=== PATIENT | female | born 1975 | race Caucasian/White ===

== ENCOUNTER → 2016-11-20 | Outpatient (CLI) | payer MEDICARE ==
[~2016-11-20] MED LIST: ADVIL,MOTRIN,R200 MG PO; ANAPROX DS550 MG PO; CELEXA40 MG PO; CLARITIN10 MG PO; CLINDAMYCIN150 MG PO; LEVOTHYROXINE0.1 M1 PO; MIDRIN (DURADR1 CAP PO; QUETIAPINE FUM400 M1 PO; SEROQUEL200 MG PO; SERTRALINE HYD100 MG PO; SYNTHROID,LEV200 MCG PO; ULTRAM50 MG PO; WELLBUTRIN SR150 MG PO; ZITHROMAX Z PA250 MG PO
== END ==
LOC: MAMMO 11:00
DX: Z12.31 Encounter for screening mammogram for malignant neoplasm of breast (principal); F41.9 Anxiety disorder, unspecified; R07.9 Chest pain, unspecified

== ENCOUNTER 2016-12-17 22:31 | Emergency (ER) | payer MEDICARE ==
[2016-12-17] MEDS ORDERED: ALDACTONE25 MG PO (22:41)
[2016-12-17 22:53] LABS: BASO # 0.1 10*3/uL (0.0-0.1); BASO % 1.1 % (0.0-1.0); EOS # 0.2 10*3/uL (0.0-0.4); HEMATOCRIT 36.7 % (37.0-47.0); HEMOGLOBIN 12.3 g/dl (12.0-16.0); LYMPH # 3.2 10*3/uL (1.3-4.4); LYMPH % 43.6 % (27.0-41.0); MEAN CELL VOLUME 98.9 fl (81.0-99.0); MEAN CORPUSCULAR HGB 33.2 pg (27.0-31.0); MEAN CORPUSCULAR HGB CONC 33.5 g/dl (33.0-37.0); MEAN PLATELET VOLUME 10.4 fl (9.6-12.3); MONO # 0.6 10*3/uL (0.1-1.0); MONO % 7.4 % (3.0-9.0); NEUT # 3.4 10*3/uL (2.3-7.9); NEUT % 45.5 % (47.0-73.0); PLATELET COUNT AUTOMATED 270 10*3/uL (130-400); RED BLOOD COUNT 3.71 10*6/uL (4.10-5.10); RED CELL DISTRI WIDTH 13.1 % (0-14.5); WHITE BLOOD COUNT 7.4 10*3/uL (4.8-10.8)
[2016-12-17 23:45] LABS: PROTHROMBIN TIME 10.9 SECONDS (9.0-12.4)
[2016-12-17 23:50] LABS: ALBUMIN 3.4 gm/dl (3.1-4.5); ALKALINE PHOSPHATASE 54 U/L (45-117); BILIRUBIN, TOTAL 0.2 mg/dl (0.2-1.0); BUN 15 mg/dl (7-24); CARBON DIOXIDE 24 mmol/L (21-32); CHLORIDE 104 mmol/L (98-107); EST GLOM FILT AFRICAN AMERICAN > 60 ml/min; GLUCOSE 140 mg/dL (65-99); MAGNESIUM 1.7 mg/dL (1.5-2.1); POTASSIUM 4.2 mmol/L (3.5-5.1); SGOT/AST 20 IU/L (3-35); SGPT/ALT 44 U/L (12-78); SODIUM 140 mmol/L (136-145); TOTAL PROTEIN 7.5 gm/dL (6.4-8.2)
[2016-12-17 23:51] LABS: TROPONIN I < 0.015 ng/ml (<0.045)
[2016-12-18 00:11] VITALS: BP 116/68
[2016-12-18] MEDS ORDERED: ZANTAC 150150 MG PO (00:22)
== END 2016-12-18 00:22 | disposition home or self-care (01) ==
LOC: ED 22:31
PROVIDERS: Emergency Medicine Emergency Medical Services
DX: R07.89 Other chest pain (principal); Z88.0 Allergy status to penicillin; Z88.2 Allergy status to sulfonamides; Z79.899 Other long term (current) drug therapy

== ENCOUNTER 2017-01-09 11:16 | Emergency (ER) | payer MEDICARE ==
[~2017-01-09] VITALS: Ht 162.5 cm; Wt 145.1 kg
[~2017-01-09 11:16] MED LIST changes: +ALDACTONE25 MG PO; +ZANTAC 150150 MG PO
[2017-01-09 11:20] VITALS: BP 169/74
[2017-01-09] MEDS ORDERED: NAPROSYN500 MG PO (11:23)
== END 2017-01-09 12:43 | disposition home or self-care (01) ==
LOC: ED 11:16
DX: S80.01XA Contusion of right knee, initial encounter (principal); R03.0 Elevated blood-pressure reading, without diagnosis of hypertension; Z88.0 Allergy status to penicillin; Z88.1 Allergy status to other antibiotic agents; Z88.2 Allergy status to sulfonamides; Z79.899 Other long term (current) drug therapy; W01.0XXA Fall on same level from slipping, tripping and stumbling without subsequent striking against object, initial encounter; Y93.89 Activity, other specified; Y92.89 Other specified places as the place of occurrence of the external cause; Y99.8 Other external cause status

== ENCOUNTER → 2017-02-05 | Outpatient (CLI) | payer MEDICARE ==
[~2017-02-05] MED LIST changes: +NAPROSYN500 MG PO
[2017-02-05 10:49] LABS: HEMOGLOBIN A1c 6.5 % (4.8-5.6)
[2017-02-05 10:59] LABS: BUN 11 mg/dl (7-24); CARBON DIOXIDE 31 mmol/L (21-32); CHLORIDE 102 mmol/L (98-107); EST GLOM FILT AFRICAN AMERICAN > 60 ml/min; FREE T4 0.71 ng/dl (0.76-1.46); GLUCOSE 100 mg/dL (65-99); POTASSIUM 3.8 mmol/L (3.5-5.1); SODIUM 138 mmol/L (136-145)
== END | disposition home or self-care (01) ==
LOC: LAB 09:44
PROVIDERS: Internal Medicine
DX: I10 Essential (primary) hypertension (principal); E03.9 Hypothyroidism, unspecified; E55.9 Vitamin D deficiency, unspecified; E88.81 Metabolic syndrome and other insulin resistance; E66.01 Morbid (severe) obesity due to excess calories; Z79.899 Other long term (current) drug therapy

== ENCOUNTER 2017-06-30 23:30 | Emergency (ER) | payer MEDICARE ==
[~2017-06-30] VITALS: Ht 160 cm; Wt 147.0 kg
--- NOTE | ~2017-06-30 | EKG ---
[place], [place] ELECTROCARDIOGRAM REPORT NAME: DESIRE ABRAHAM UNIT #: [id number] ROOM: DOCTOR: YANE HANSEN MD BIRTHDATE: [birth year] DOS: 07/01/2017 TIME: 0111 hours. Normal sinus rhythm at 78 beats per minute. The tracing is normal. No significant change from an ECG of the previous day. YANE HANSEN MD CM:EKGRPT:ELECTROCARDIOGRAM REPORT 1146 1302 YANE HANSEN MD
--- NOTE | ~2017-06-30 | EKG ---
[place], [place] ELECTROCARDIOGRAM REPORT NAME: DESIRE ABRAHAM UNIT #: [id number] ROOM: DOCTOR: YANE HANSEN MD BIRTHDATE: [birth year] DOS: 06/30/2017 TIME: 2341 hours. Normal sinus rhythm at 76 beats per minute. The tracing is normal. No previous tracing is available for comparison. YAEN HANSEN MD CM:EKGRPT:ELECTROCARDIOGRAM REPORT 1146 1301 YANE HANSEN MD
[2017-07-01 00:17] LABS: BASO # 0.1 10*3/uL (0.0-0.1); BASO % 0.9 % (0.0-1.0); EOS # 0.1 10*3/uL (0.0-0.4); HEMATOCRIT 37.2 % (37.0-47.0); HEMOGLOBIN 12.4 g/dl (12.0-16.0); LYMPH # 1.6 10*3/uL (1.3-4.4); LYMPH % 16.6 % (27.0-41.0); MEAN CELL VOLUME 98.4 fl (81.0-99.0); MEAN CORPUSCULAR HGB 32.8 pg (27.0-31.0); MEAN CORPUSCULAR HGB CONC 33.3 g/dl (33.0-37.0); MEAN PLATELET VOLUME 9.6 fl (9.6-12.3); MONO # 0.5 10*3/uL (0.1-1.0); MONO % 4.8 % (3.0-9.0); NEUT # 7.1 10*3/uL (2.3-7.9); NEUT % 75.5 % (47.0-73.0); PLATELET COUNT AUTOMATED 286 10*3/uL (130-400); RED BLOOD COUNT 3.78 10*6/uL (4.10-5.10); RED CELL DISTRI WIDTH 13.7 % (0-14.5); WHITE BLOOD COUNT 9.3 10*3/uL (4.8-10.8)
[2017-07-01 00:28] LABS: ACT PARTIAL THROMBO TIME 23.1 SECONDS (20.8-31.5)
[2017-07-01 00:37] LABS: ALBUMIN 3.9 gm/dl (3.1-4.5); ALKALINE PHOSPHATASE 62 U/L (45-117); BUN 12 mg/dl (7-24); CHLORIDE 99 mmol/L (98-107); CREATININE 0.72 mg/dL (0.55-1.02); MAGNESIUM 1.7 mg/dL (1.5-2.1); POTASSIUM 3.7 mmol/L (3.5-5.1); SGOT/AST 20 IU/L (3-35); SGPT/ALT 35 U/L (12-78); SODIUM 136 mmol/L (136-145); TOTAL PROTEIN 8.5 gm/dL (6.4-8.2)
[2017-07-01 00:41] LABS: TROPONIN I < 0.015 ng/ml (<0.045)
[2017-07-01 00:48] VITALS: BP 124/66
[2017-07-01 01:19] LABS: BILIRUBIN NEGATIVE (NEGATIVE); BLOOD NEGATIVE (NEGATIVE); CLARITY SL CLOUDY (CLEAR); COLOR YELLOW (YELLOW); GLUCOSE NEGATIVE (NEGATIVE); KETONE TRACE (NEGATIVE); LEUKO ESTERASE 1+ (NEGATIVE); NITRITE POSITIVE (NEGATIVE); PH 5.5 (5.0-9.0); SPECIFIC GRAVITY >= 1.030 (1.005-1.030); UROBILINOGEN 0.2 E.U./dl (0.2-1.0)
[2017-07-01 01:25] LABS: EPITHELIAL CELLS 25-30
[2017-07-01 01:26] LABS: BACTERIA 2+
[2017-07-01 01:28] LABS: WBC 21-30 wbc/hpf (0-5)
[2017-07-01] MEDS ORDERED: DIFLUCAN150 MG PO (01:47)
[2017-07-01] MEDS ORDERED: ZOFRAN ODT4 MG SL (01:47)
[2017-07-01] MEDS ORDERED: REGLAN5 MG PO (01:47)
[2017-07-01] MEDS ORDERED: MACROBID100 M1 PO (01:47)
== END 2017-07-01 02:06 | disposition home or self-care (01) ==
LOC: ED 23:30
PROVIDERS: Emergency Medicine Emergency Medical Services
DX: N39.0 Urinary tract infection, site not specified (principal); I10 Essential (primary) hypertension; K21.9 Gastro-esophageal reflux disease without esophagitis; E11.43 Type 2 diabetes mellitus with diabetic autonomic (poly)neuropathy; K31.84 Gastroparesis; R10.13 Epigastric pain; Z98.890 Other specified postprocedural states; Z90.710 Acquired absence of both cervix and uterus; Z79.899 Other long term (current) drug therapy; Z88.2 Allergy status to sulfonamides; Z88.1 Allergy status to other antibiotic agents; Z88.0 Allergy status to penicillin

== ENCOUNTER → 2017-07-10 | Outpatient (CLI) | payer MEDICARE ==
[~2017-07-10] MED LIST changes: +DIFLUCAN150 MG PO; +MACROBID100 M1 PO; +REGLAN5 MG PO; +ZOFRAN ODT4 MG SL
[2017-07-10 10:36] LABS: BUN 17 mg/dl (7-24); CHLORIDE 99 mmol/L (98-107); CREATININE 1.03 mg/dL (0.55-1.02); POTASSIUM 4.1 mmol/L (3.5-5.1); SODIUM 137 mmol/L (136-145)
[2017-07-10 12:50] LABS: VITAMIN D, 25-HYDROXY 27.5 ng/mL (30-100)
== END ==
LOC: US 07:30 → LAB 08:56 → US 08:56
PROVIDERS: Internal Medicine
DX: K76.0 Fatty (change of) liver, not elsewhere classified (principal); K80.20 Calculus of gallbladder without cholecystitis without obstruction; E55.9 Vitamin D deficiency, unspecified; E03.9 Hypothyroidism, unspecified; R73.02 Impaired glucose tolerance (oral); L68.0 Hirsutism

== ENCOUNTER → 2017-12-02 | Outpatient (CLI) | payer MEDICARE | END | disposition home or self-care (01) | LOC: ORTHO 01:26 | DX: M17.11 Unilateral primary osteoarthritis, right knee (principal); Z91.81 History of falling ==

== ENCOUNTER 2018-03-13 18:32 | Inpatient (IN) | payer MEDICARE ==
[~2018-03-13] VITALS: Ht 162.5 cm; Wt 143.9 kg
[2018-03-13 18:39] VITALS: BP 107/65
[2018-03-13] MEDS ORDERED: PANTOPRAZOLE SO40 MG PO (18:48)
[2018-03-13] MEDS ORDERED: VITAMIN D5000 UNIT PO (18:48)
[2018-03-13] MEDS ORDERED: METFORMIN750 MG PO (18:49)
[2018-03-13 19:23] LABS: BASO # 0.1 10*3/uL (0.0-0.1); BASO % 0.5 % (0.0-1.0); EOS # 0.1 10*3/uL (0.0-0.4); EOS % 0.6 % (1.0-4.0); HEMOGLOBIN 11.1 g/dl (12.0-16.0); LYMPH % 9.1 % (27.0-41.0); MEAN CELL VOLUME 100.3 fl (81.0-99.0); MEAN CORPUSCULAR HGB 32.7 pg (27.0-31.0); MEAN CORPUSCULAR HGB CONC 32.6 g/dl (33.0-37.0); MEAN PLATELET VOLUME 9.6 fl (9.6-12.3); MONO # 1.1 10*3/uL (0.1-1.0); MONO % 9.9 % (3.0-9.0); NEUT # 8.9 10*3/uL (2.3-7.9); NEUT % 79.3 % (47.0-73.0); PLATELET COUNT AUTOMATED 258 10*3/uL (130-400); RED BLOOD COUNT 3.39 10*6/uL (4.10-5.10); RED CELL DISTRI WIDTH 14.2 % (0-14.5); WHITE BLOOD COUNT 11.3 10*3/uL (4.8-10.8)
[2018-03-13 19:38] LABS: BILIRUBIN NEGATIVE (NEGATIVE); BLOOD 3+ (NEGATIVE); CLARITY SL CLOUDY (CLEAR); COLOR YELLOW (YELLOW); GLUCOSE NEGATIVE (NEGATIVE); KETONE NEGATIVE (NEGATIVE); LEUKO ESTERASE 3+ (NEGATIVE); NITRITE POSITIVE (NEGATIVE); PH 6.5 (5.0-9.0); SPECIFIC GRAVITY 1.015 (1.005-1.030)
[2018-03-13 19:39] LABS: ALBUMIN 3.4 gm/dl (3.1-4.5); ALKALINE PHOSPHATASE 56 U/L (45-117); BUN 13 mg/dl (7-24); CHLORIDE 99 mmol/L (98-107); CREATININE 0.97 mg/dL (0.55-1.02); LIPASE 79 U/L (73-393); POTASSIUM 4.1 mmol/L (3.5-5.1); SGOT/AST 22 IU/L (3-35); SGPT/ALT 37 U/L (12-78); SODIUM 135 mmol/L (136-145); TOTAL PROTEIN 7.9 gm/dL (6.4-8.2)
[2018-03-13 19:45] LABS: BACTERIA 2+; EPITHELIAL CELLS 50-60; RBC 21-30 rbc/hpf (0-2); WBC TNTC wbc/hpf (0-5)
[2018-03-13 20:00] VITALS: BP 110/72
[2018-03-14 02:18] LABS: BASO # 0.1 10*3/uL (0.0-0.1); BASO % 0.4 % (0.0-1.0); EOS % 0.3 % (1.0-4.0); HEMOGLOBIN 10.2 g/dl (12.0-16.0); LYMPH # 1.1 10*3/uL (1.3-4.4); LYMPH % 9.9 % (27.0-41.0); MEAN CELL VOLUME 100.6 fl (81.0-99.0); MEAN CORPUSCULAR HGB 32.1 pg (27.0-31.0); MEAN CORPUSCULAR HGB CONC 31.9 g/dl (33.0-37.0); MEAN PLATELET VOLUME 9.8 fl (9.6-12.3); MONO # 1.3 10*3/uL (0.1-1.0); MONO % 11.6 % (3.0-9.0); NEUT # 8.7 10*3/uL (2.3-7.9); NEUT % 77.1 % (47.0-73.0); PLATELET COUNT AUTOMATED 246 10*3/uL (130-400); RED BLOOD COUNT 3.18 10*6/uL (4.10-5.10); RED CELL DISTRI WIDTH 14.2 % (0-14.5); WHITE BLOOD COUNT 11.2 10*3/uL (4.8-10.8)
[2018-03-14 02:27] LABS: ACT PARTIAL THROMBO TIME 27.5 SECONDS (20.8-31.5); INTERNATIONAL NORM RATIO 1.1 (2.0-3.5)
[2018-03-14 02:32] LABS: ALBUMIN 3.2 gm/dl (3.1-4.5); ALKALINE PHOSPHATASE 58 U/L (45-117); BUN 11 mg/dl (7-24); CHLORIDE 97 mmol/L (98-107); CHOLESTEROL 112 mg/dL (<200); CREATININE 1.08 mg/dL (0.55-1.02); HDL CHOLESTEROL 39 mg/dl (40-60); LDL CHOLESTEROL 54 mg/dL (9-159); PHOSPHOROUS 3.6 mg/dL (2.5-4.9); POTASSIUM 4.1 mmol/L (3.5-5.1); SGOT/AST 19 IU/L (3-35); SGPT/ALT 36 U/L (12-78); SODIUM 136 mmol/L (136-145); TOTAL PROTEIN 7.4 gm/dL (6.4-8.2); TRIGLYCERIDES 97 mg/dl (<150); VLDL CHOLESTEROL 19 mg/dL (6-40)
[2018-03-14 02:34] LABS: FREE T4 1.21 ng/dl (0.76-1.46)
[2018-03-14 02:38] LABS: THYROID STIM HORMONE (HS) 0.129 uIU/ml (0.358-4.75)
[2018-03-14 03:45] VITALS: BP 126/66
[2018-03-14] MEDS ORDERED: LEVOTHYROXINE175 MCG PO (04:00)
[2018-03-14] MEDS ORDERED: METOCLOPRAMIDE5 MG PO (04:02)
[2018-03-14] MEDS ORDERED: NAPROSYN500 MG PO (04:03)
[2018-03-14] MEDS ORDERED: SEROQUEL25 MG PO (04:05)
[2018-03-14] MEDS ORDERED: ALDACTONE100 MG PO (04:07)
[2018-03-14 07:05] LABS: VITAMIN D, 25-HYDROXY 32.1 ng/mL (30-100)
[2018-03-14 08:00] VITALS: BP 129/69
[2018-03-14 12:00] VITALS: BP 134/67
[2018-03-14 16:00] VITALS: BP 94/58
[2018-03-14 20:00] VITALS: BP 117/75
[2018-03-15] VITALS: BP 102/52
[2018-03-15 06:05] LABS: BASO # 0.1 10*3/uL (0.0-0.1); BASO % 0.6 % (0.0-1.0); EOS # 0.1 10*3/uL (0.0-0.4); EOS % 1.7 % (1.0-4.0); HEMOGLOBIN 9.7 g/dl (12.0-16.0); LYMPH # 1.2 10*3/uL (1.3-4.4); LYMPH % 15.5 % (27.0-41.0); MEAN CORPUSCULAR HGB 31.9 pg (27.0-31.0); MEAN CORPUSCULAR HGB CONC 31.3 g/dl (33.0-37.0); MEAN PLATELET VOLUME 10.1 fl (9.6-12.3); MONO # 1.1 10*3/uL (0.1-1.0); MONO % 14.2 % (3.0-9.0); NEUT # 5.2 10*3/uL (2.3-7.9); PLATELET COUNT AUTOMATED 208 10*3/uL (130-400); RED BLOOD COUNT 3.04 10*6/uL (4.10-5.10); RED CELL DISTRI WIDTH 14.2 % (0-14.5); WHITE BLOOD COUNT 7.7 10*3/uL (4.8-10.8)
[2018-03-15 06:07] LABS: ALBUMIN 2.8 gm/dl (3.1-4.5); ALKALINE PHOSPHATASE 53 U/L (45-117); BUN 9 mg/dl (7-24); CHLORIDE 104 mmol/L (98-107); CREATININE 0.86 mg/dL (0.55-1.02); POTASSIUM 4.1 mmol/L (3.5-5.1); SGOT/AST 13 IU/L (3-35); SGPT/ALT 27 U/L (12-78); SODIUM 138 mmol/L (136-145)
[2018-03-15 06:10] LABS: VANCOMYCIN TROUGH 24.1 ug/mL (10-20)
[2018-03-15 08:00] VITALS: BP 105/45
[2018-03-15 12:00] VITALS: BP 140/70
[2018-03-15 16:00] VITALS: BP 129/76
[2018-03-15 20:00] VITALS: BP 131/76
[2018-03-16] VITALS: BP 136/86
[2018-03-16 06:45] LABS: BASO % 0.7 % (0.0-1.0); EOS # 0.2 10*3/uL (0.0-0.4); EOS % 3.8 % (1.0-4.0); HEMATOCRIT 29.9 % (37.0-47.0); HEMOGLOBIN 9.5 g/dl (12.0-16.0); LYMPH # 1.6 10*3/uL (1.3-4.4); LYMPH % 25.7 % (27.0-41.0); MEAN CELL VOLUME 100.7 fl (81.0-99.0); MEAN CORPUSCULAR HGB CONC 31.8 g/dl (33.0-37.0); MEAN PLATELET VOLUME 9.8 fl (9.6-12.3); MONO # 0.8 10*3/uL (0.1-1.0); MONO % 13.9 % (3.0-9.0); NEUT # 3.3 10*3/uL (2.3-7.9); NEUT % 54.2 % (47.0-73.0); PLATELET COUNT AUTOMATED 223 10*3/uL (130-400); RED BLOOD COUNT 2.97 10*6/uL (4.10-5.10)
[2018-03-16 06:55] LABS: BUN 10 mg/dl (7-24); CHLORIDE 105 mmol/L (98-107); CREATININE 0.83 mg/dL (0.55-1.02); POTASSIUM 4.2 mmol/L (3.5-5.1); SODIUM 142 mmol/L (136-145)
[2018-03-16 08:00] VITALS: BP 139/81
[2018-03-16] MEDS ORDERED: DOXYCYCLINE100 M3 PO (10:06)
== END 2018-03-16 11:35 | disposition home or self-care (01) | DRG 872 ==
LOC: ED 18:32 → 5E 03-14 01:23 → EDHOLD 03-14 01:23 → 5E 03-14 01:42
PROVIDERS: Family Medicine; Internal Medicine; Nurse Practitioner Family; Student in an Organized Health Care Education/Training Program
DX: A41.9 Sepsis, unspecified organism (principal); E44.0 Moderate protein-calorie malnutrition; K31.84 Gastroparesis; E66.01 Morbid (severe) obesity due to excess calories; E11.65 Type 2 diabetes mellitus with hyperglycemia; E83.42 Hypomagnesemia; E11.43 Type 2 diabetes mellitus with diabetic autonomic (poly)neuropathy; N12 Tubulo-interstitial nephritis, not specified as acute or chronic; Z68.43 Body mass index [BMI] 50.0-59.9, adult; E03.9 Hypothyroidism, unspecified; F32.9 Major depressive disorder, single episode, unspecified; F41.9 Anxiety disorder, unspecified; D53.9 Nutritional anemia, unspecified; E53.8 Deficiency of other specified B group vitamins; Z90.49 Acquired absence of other specified parts of digestive tract; Z82.49 Family history of ischemic heart disease and other diseases of the circulatory system; Z90.710 Acquired absence of both cervix and uterus; Z83.3 Family history of diabetes mellitus; Z88.2 Allergy status to sulfonamides; Z88.0 Allergy status to penicillin; Z88.8 Allergy status to other drugs, medicaments and biological substances; Z80.3 Family history of malignant neoplasm of breast; Z84.89 Family history of other specified conditions; Z79.899 Other long term (current) drug therapy

== ENCOUNTER 2018-06-05 14:03 | Emergency (ER) | payer MEDICARE ==
[~2018-06-05] VITALS: Ht 172.7 cm; Wt 141.5 kg
[~2018-06-05 14:03] MED LIST changes: +ALDACTONE100 MG PO; +DOXYCYCLINE100 M3 PO; +LEVOTHYROXINE175 MCG PO; +METFORMIN750 MG PO; +METOCLOPRAMIDE5 MG PO; +PANTOPRAZOLE SO40 MG PO; +SEROQUEL25 MG PO; +VITAMIN D5000 UNIT PO
[2018-06-05 14:04] VITALS: BP 135/76
[2018-06-05] MEDS ORDERED: Fioricet 325 MG1 TAB PO (16:38)
== END 2018-06-05 17:09 | disposition home or self-care (01) ==
LOC: ED 14:03
DX: G43.909 Migraine, unspecified, not intractable, without status migrainosus (principal); Z90.710 Acquired absence of both cervix and uterus; Z90.49 Acquired absence of other specified parts of digestive tract; Z98.890 Other specified postprocedural states; Z79.899 Other long term (current) drug therapy; Z88.1 Allergy status to other antibiotic agents; Z88.2 Allergy status to sulfonamides; Z88.0 Allergy status to penicillin

== ENCOUNTER → 2018-09-08 | Outpatient (CLI) | payer MEDICARE ==
[~2018-09-08] MED LIST changes: +Fioricet 325 MG1 TAB PO
== END | disposition home or self-care (01) ==
LOC: ORTHO 00:54
DX: M17.11 Unilateral primary osteoarthritis, right knee (principal); M21.161 Varus deformity, not elsewhere classified, right knee

== ENCOUNTER → 2018-10-14 | Outpatient (CLI) | payer MEDICARE ==
[2018-10-14 13:39] LABS: BUN 17 mg/dl (7-24); CHLORIDE 100 mmol/L (98-107); CHOLESTEROL 215 mg/dL (<200); CREATININE 1.09 mg/dL (0.55-1.02); FREE T4 0.23 ng/dl (0.76-1.46); HDL CHOLESTEROL 47 mg/dl (40-60); LDL CHOLESTEROL 133 mg/dL (9-159); POTASSIUM 4.1 mmol/L (3.5-5.1); SODIUM 136 mmol/L (136-145); TRIGLYCERIDES 173 mg/dl (<150); VLDL CHOLESTEROL 35 mg/dL (6-40)
[2018-10-14 14:39] LABS: VITAMIN D, 25-HYDROXY 17.4 ng/mL (30-100)
[2018-10-15 06:11] LABS: DHEA SULFATE 41.3 ug/dL (57.3-279.2); PROGESTERONE 004317 <0.1 ng/mL (.)
== END | disposition home or self-care (01) ==
LOC: LAB 12:34
PROVIDERS: Internal Medicine
DX: L68.0 Hirsutism (principal); E55.9 Vitamin D deficiency, unspecified; E03.9 Hypothyroidism, unspecified; R73.02 Impaired glucose tolerance (oral)

== ENCOUNTER → 2018-12-29 | Outpatient (CLI) | payer OTHER ==
[~2018-12-29] MED LIST changes: +AIMOVIG AU70 MG/1 ML SQ; +CEFDINIR300 MG PO; +FEROSUL325 MG PO; +IBU600 M1 PO; +LEVOTHYROXINE200 MC2 PO; +METFORMIN HYDR750 MG PO; +METOPROLOL TART50 M1 PO; +PREDNISONE10 MG PO; +QUETIAPINE FUMA25 MG PO; +SEROQUEL300 MG PO; +SPIRONOLACTONE100 MG PO; +VITAMIN D5000 UNI1 PO; +ZOLOFT100 MG PO; +[UNRECOGNIZED DRUG - OTHER] PO
[2018-12-29 16:14] LABS: HEMOGLOBIN 10.2 g/dl (12.0-16.0); MEAN CELL VOLUME 108.1 fl (81.0-99.0); MEAN CORPUSCULAR HGB 34.5 pg (27.0-31.0); MEAN CORPUSCULAR HGB CONC 31.9 g/dl (33.0-37.0); MEAN PLATELET VOLUME 9.5 fl (9.6-12.3); PLATELET COUNT AUTOMATED 265 10*3/uL (130-400); RED BLOOD COUNT 2.96 10*6/uL (4.10-5.10); RED CELL DISTRI WIDTH 14.4 % (0-14.5); WHITE BLOOD COUNT 6.5 10*3/uL (4.8-10.8)
[2018-12-29 16:47] LABS: ALBUMIN 3.5 gm/dl (3.1-4.5); ALKALINE PHOSPHATASE 53 U/L (45-117); BASOPHILS 2 % (0-1); BUN 23 mg/dl (7-24); CHLORIDE 101 mmol/L (98-107); CPK 185 U/L (26-192); CREATININE 1.18 mg/dL (0.55-1.02); PLATELET SUFFICIENCY NORMAL (NORMAL); POTASSIUM 4.5 mmol/L (3.5-5.1); SGOT/AST 28 IU/L (3-35); SGPT/ALT 48 U/L (12-78); SODIUM 135 mmol/L (136-145); TARGET CELLS FEW; TOTAL CELLS COUNTED 100 #CELLS; TOTAL PROTEIN 8.1 gm/dL (6.4-8.2)
== END | disposition home or self-care (01) ==
LOC: LAB 15:47
PROVIDERS: Nurse Practitioner Adult Health
DX: R10.13 Epigastric pain (principal); R00.2 Palpitations

== ENCOUNTER 2019-03-09 14:52 | Inpatient (IN) | payer MEDICARE ==
[~2019-03-09] VITALS: Ht 162.5 cm; Wt 156.2 kg
--- NOTE | ~2019-03-09 | EKG ---
[place], [place] ELECTROCARDIOGRAM REPORT NAME: DESIRE ABRAHAM UNIT #: [id number] ROOM: 516 DOCTOR: TEVIN DRAFT REPORT BIRTHDATE: [birth year] [facility] Test Date: 2019-03-09 Test Time: 15:24:34 Pat Name: DESIRE ABRAHAM Department: Room: 516 Gender: F [employer]ing [employer] Tender: : 1975 Requested By: LAURA CHRISTOPHER DNP Order Number: [id number] Reading MD: Justin Payton MD Measurements Intervals [place] Rate: 109 P: 51 SD: 176 QRS: 41 QRSD: 77 T: 8 QT: 351 QTc: 473 Interpretive Statements Sinus tachycardia Borderline T wave abnormalities Baseline wander in lead(s) V1 Electronically Signed On 03-11-2019 9:10:42 PDT by Justin Payton MD CM:EKGRPT:ELECTROCARDIOGRAM REPORT 1524 [id number] LAURA ABARCA DRAFT REPORT LAURA CHRISTOPHER DNP
--- NOTE | ~2019-03-09 | CON ---
[place], [place] REPORT OF CONSULTATION [facility]: [facility] [id number] UNIT #: [id number] ROOM: 516 DOCTOR: VICKY GALAVIZ MD BIRTHDATE: [birth year] DOS: 03/10/2019 PULMONARY CONSULTATION, EVALUATION, AND MANAGEMENT REASON FOR CONSULTATION: To assess for acute pneumonia. HISTORY OF PRESENT ILLNESS: A 43-year-old female patient, unknown to me. She has been admitted to the hospital as she has been experiencing increased symptoms of shortness of breath, which are occurring for the last several days with gradual increase today. The patient also developed a cough, later on which noted progressively increased. She has been expectorating sputum, which is described to be clear to greenish at times. There were no symptoms of hemoptysis. She does have symptoms of wheezing as well. The patient was also noted with edema of the lower extremities as well. Shortness of breath and all other symptoms were worsened significantly over the last 3 days requiring assessment in the Emergency Room. The patient admitted to the hospital for further care and also noted diagnosis of acute pneumonia. REVIEW OF SYSTEMS: CONSTITUTIONAL SYMPTOMS: Fatigue and tiredness noted without any symptoms of fever or chills. EYES: Denied burning, redness, or tenderness. EARS, NOSE, THROAT SYMPTOMS: Denies sore throat, hoarseness, otalgia, postnasal drainage or epistaxis. CARDIOVASCULAR: No angina pain, pain of the lower extremity, edema of the lower extremity noted with chronic changes. EXTREMITIES: Dryness of the skin in lower extremity. Otherwise, in skin there were no lesions or rashes reported. GASTROINTESTINAL: Denies dysphagia, nausea, vomiting, diarrhea, abdominal pain, hematemesis, melena, or hematochezia. There were no symptoms of abnormal weight loss. History of chronic severe obesity was known. GENITOURINARY: No dysuria, suprapubic pain, or hematuria. MUSCULOSKELETAL SYMPTOMS: No acute joint pain, redness, or tenderness. CENTRAL NERVOUS SYSTEM: Denies dizziness, headache, diplopia or syncopal episode. Remaining systems were reviewed. They were noted all negative. PAST MEDICAL HISTORY: Noted: 1. Hypothyroidism. 2. Type 2 diabetes mellitus. 3. Gastroparesis. 4. Depression and general anxiety disorder. 5. Severe obesity as well. 6. History of migraine headaches. There was no history of bronchial asthma and COPD reported by the patient. PAST SURGICAL HISTORY: Reported: 1. Surgery of the bladder. [place], [place] REPORT OF CONSULTATION NAME: DESIRE ABRAHAM UNIT #: [id number] ROOM: 516 DOCTOR: DELVIS HAN MD,VICKY BIRTHDATE: [birth year] 2. Cholecystectomy. 3. . 4. Hysterectomy. SOCIAL HISTORY: The patient stated that she is not currently , has one son. She is . Denies history of alcohol use or any illicit drugs. There was no tobacco use. FAMILY HISTORY: The patient's father , denies a complication of mesothelioma. The mother is 62 years old, was noted with a history of breast cancer. HOME MEDICATIONS: Listed as levothyroxine, vitamin D, ferrous sulfate, metformin, metoprolol tartrate, misoprostol, Seroquel, Aldactone and erenumab, this is taken as a monthly injection. CURRENT MEDICATIONS, which were actively administered on this hospitalization were noted as vitamin D, misoprostol, ferrous sulfate, Lovenox for DVT prophylaxis, levothyroxine 400 mcg daily, Seroquel, sertraline, metoprolol tartrate, Mucinex, Solu-Medrol 60 mg b.i.d., DuoNeb q. 4 hours, IV Rocephin, and Zithromax. DRUG ALLERGIES: Noted as allergy: 1. CEPHALOSPORINS. 2. SULFA DRUGS. 3. VERAPAMIL. 4. LEVAQUIN. 5. PENICILLINS. PHYSICAL EXAMINATION: GENERAL: A 43-year-old female who has been currently noted to be awake and alert sitting on the chair this morning of assessment at the bedside. Height of 5 feet 4 inches, weight of 244 pounds, BMI 59.1. VITAL SIGNS: For the patient which were recorded shows the temperature noted low grade as 99.4 degrees on admission, heart rate on admission 114, blood pressure 130/69, respiratory rate of 24 at that time. Pulse oxygen saturation recorded as 89% to 88% saturation. Room air on 2 liters nasal cannula on admission as well. HEENT: Examination shows head was atraumatic. Eyes nonicterus. Severe decreased posterior pharyngeal space, high tongue base crowding of soft tissue structures. NECK: Supple and obese. CARDIOVASCULAR SYSTEM: S1, S2 is audible. LUNGS: Possible mild acute edema cannot be excluded. ABDOMEN: Noted with severe morbid obesity. Bowel sounds present. There was no tenderness. VISIBLE SKIN: Noted without any lesions or rashes, and dryness of the skin noted. CENTRAL NERVOUS SYSTEM: In general overall noted intact. MUSCULOSKELETAL: Without acute deformities. [place], [place] REPORT OF CONSULTATION NAME: DESIRE ABRAHAM UNIT #: [id number] ROOM: 516 DOCTOR: DELVIS HAN MD,VICKY BIRTHDATE: [birth year] LABORATORY DATA: CBC on admission, WBC count of 6.8, hemoglobin 8.6, hematocrit 28.2, platelet count of 302,000. CMP on admission, BUN normal, creatinine was normal. Glucose 171. Potassium was 3.1. PT/PTT yesterday were noted as negative study. CMP of normal study. CMP this morning, glucose 204, BUN normal, creatinine was normal. CBC that was done on 03/10/2019, hemoglobin 8.6, platelet count was normal. WBC count normal. Chest x-ray, 1 view, very limited study because of large body habitus was noted with difficult to assess any underlying pulmonary filtration or other abnormalities. CT of the chest that was done yesterday reviewed as well. This shows there was no evidence of pulmonary embolism noted. However, the opacification of pulmonary artery noted suboptimal with pulmonary emboli in the major pulmonary artery was excluded. The distal pulmonary emboli at present cannot be completely excluded. IMPRESSION: 1. Evidence of infiltration noted area of consolidation in the left upper lobe as well as left lower lobe. Mild lymphadenopathy noted in the left hilar area as well and in the mediastinum as well. 2. Acute hypoxic respiratory failure secondary to the above. 3. Possible consideration of congestive heart failure superimposed recurrent pneumonia cannot be completely excluded. The assessment on admission noted with finding consistent with acute sepsis. PLAN OF MANAGEMENT: Agree with the use of Zithromax, Rocephin, and antibiotics. She was also noted bronchospasm on admission may be reactive to the current ongoing acute infection and currently treated with high dose corticosteroids. The dose of corticosteroids will be decreased. Continue bronchodilator. Monitor chest x-ray. Lymphadenopathy, most likely will be considered reactive secondary to acute infection. A followup CT scan in the next 3 months might be beneficial. Obtain the sputum for Gram stain and culture. Order urine for Legionella antigen as well as strep antigen as part of the assessment for the pneumonia. Other therapy, plan and management, and additional treatment changes will be ordered based on the progression of illness. Use the oxygen supplementation, maintain pulse ox 92% or greater. Discontinue Solu-Medrol at the present time and/or use the Pulmicort Respules for bronchospasm for management if necessary Bronchodilators. If the wheezing reoccurred or worsens, the steroids could be reintroduced. This should also help improve the uncontrolled diabetes mellitus as well. Thanks for allowing me to participate in the care of this patient. [place], [place] REPORT OF CONSULTATION NAME: DESIRE ABRAHAM UNIT #: [id number] ROOM: [facility] DOCTOR: VICKY GALAVIZ MD BIRTHDATE: [birth year] VICKY EDMONDSON MD CM:CONSTR:REPORT OF CONSULTATION 1426 03/21/19 0946 interface
--- NOTE | ~2019-03-09 | PR ---
[place], [place] PROGRESS NOTE [id number] UNIT #: [id number] ROOM: 516 DOCTOR: DELVIS HAN MD,VICKY BIRTHDATE: [birth year] DOS: 03/11/2019 SUBJECTIVE: The patient noted comfortable at this time, resting on the bed. Has been currently planned for the patient getting an echocardiogram this morning. The cough has been reported with moderate amount of sputum expectoration with increased sputum expectoration reported in the last 24 hours. Denies symptoms of chest pain, fever or chills. OBJECTIVE: VITAL SIGNS: Normal temperature, respiratory rate 18, heart rate 72%, blood pressure 170/64 this morning. Pulse oxygen saturation 2 liters nasal cannula 100% saturation. HEENT: Examination shows head was atraumatic. Eyes nonicterus. NECK: Supple. CARDIOVASCULAR: S1, S2 audible. LUNGS: Decreased breath sounds in the lungs noted bilaterally. ABDOMEN: Soft, nontender. Bowel sounds are present. EXTREMITIES: Chronic changes. IMPRESSION: The patient with: 1. Acute pneumonia with acute hypoxic respiratory failure. 2. Morbid obesity as well. PLAN OF MANAGEMENT: No changes in the plan for the patient at this time will be necessary. The previous treatment as in progress will be continued. Other additional treatment changes will be made based on progression of the illness. VICKY EDMONDSON MD CM:PNTRANS 1144 183 VICKY HAN MD 03/11/19 183 interface
--- NOTE | ~2019-03-09 | PR ---
[place], [place] PROGRESS NOTE [facility]: [facility] [id number] UNIT #: [id number] ROOM: 516 DOCTOR: DELVIS HAN MD,VICKY BIRTHDATE: [birth year] DOS: 03/13/2019 PULMONARY PROGRESS NOTE SUBJECTIVE: The patient has been noted comfortable at this time, resting on the bed without any acute distress. Denies symptoms of chest pain. The coughing has been improving. There were no symptoms of fever or chills stated by the patient. OBJECTIVE: VITAL SIGNS: Normal temperature, respiratory rate is 20, heart rate is 86, and blood pressures is 127/61. Pulse ox saturation on room air is 96% saturation recorded. HEENT: Examination shows head was atraumatic. Eyes nonicterus. NECK: Supple. CARDIOVASCULAR SYSTEM: S1, S2 is audible. LUNGS: Noted without any wheezing or crackles. ABDOMEN: Soft and obese. EXTREMITIES: Chronic obesity findings. IMAGING DATA: The chest x-ray that was done was reviewed shows left lower lobe infiltration noted with some improvement as compared to previous chest x-rays. IMPRESSION: 1. Acute pneumonia, which is resolving clinically and radiologically. 2. Chronic obesity. PLAN OF MANAGEMENT: The patient was planned for discharge by the primary care physician. She can establish an outpatient appointment regarding pulmonary status. In the meantime, continuation of treatment would be otherwise advised. VICKY EDMONDSON MD CM:PNTRANS [id number] VICKY HAN MD 03/21/19 0947 interface
--- NOTE | ~2019-03-09 | PR ---
[place], [place] PROGRESS NOTE NAME: DESIRE ABRAHAM UNIT #: [id number] ROOM: 516 DOCTOR: VICKY GALAVIZ MD BIRTHDATE: [birth year] DOS: 03/12/2019 SUBJECTIVE: The patient noted comfortable at this time, resting on the bed this morning for assessment stating reduction in respiratory symptoms of shortness of breath, coughing, and others. Denies symptoms of fever or chills. Denies symptoms of hemoptysis or pain of the lower extremities. OBJECTIVE: VITAL SIGNS: Normal temperature, respiratory rate 16, heart rate 67, blood pressure 112/60. Pulse oxygen saturation on 2 liters nasal cannula 98% saturation recorded. HEENT: Examination shows head was atraumatic. Eye nonicterus. NECK: Supple. Obese. CARDIOVASCULAR SYSTEM: S1, S2 audible. LUNGS: Scattered crackles of the lung were noted. There was no wheezing. Breaths and improvement in air entry. ABDOMEN: Soft, obese, nontender. EXTREMITIES: Show chronic changes. LABORATORY DATA: Culture of the sputum noted normal carroll, final results taken on 03/10/2019. IMPRESSION: 1. The patient who has been currently noted with continued improvement and resolution of the acute respiratory symptom related to acute pneumonia gradually. 2. Severe morbid obesity. PLAN OF MANAGEMENT: Ordered a chest x-ray to assess the progression of the pneumonia. The patient radiologic assessment; the patient has been showing improvement in the respiratory symptoms and status. Other therapy, plan of management to be done based on progression of the illness. No changes in the antibiotics will be necessary. [place], [place] PROGRESS NOTE NAME: DESIRE ABRAHAM [facility] #: [id number] UNIT #: [id number] ROOM: 516 DOCTOR: VICKY GALAVIZ MD BIRTHDATE: [birth year] VICKY EDMONDSON MD CM:PNTRANS 1040 [id number] VICKY HAN MD 03/12/19 1252 interface
[~2019-03-09 14:52] MED LIST changes: -AIMOVIG AU70 MG/1 ML SQ; -CEFDINIR300 MG PO; -FEROSUL325 MG PO; -LEVOTHYROXINE200 MC2 PO; -METFORMIN HYDR750 MG PO; -METOPROLOL TART50 M1 PO; -PREDNISONE10 MG PO; -QUETIAPINE FUMA25 MG PO; -SEROQUEL300 MG PO; -SPIRONOLACTONE100 MG PO; -VITAMIN D5000 UNI1 PO; -ZOLOFT100 MG PO; -[UNRECOGNIZED DRUG - OTHER] PO
[2019-03-09 14:58] VITALS: BP 130/69
[2019-03-09] MEDS ORDERED: QUETIAPINE FUMA25 MG PO (15:18)
[2019-03-09] MEDS ORDERED: LEVOTHYROXINE200 MC2 PO (15:19)
[2019-03-09] MEDS ORDERED: AIMOVIG AU70 MG/1 ML SQ (15:20)
[2019-03-09] MEDS ORDERED: FEROSUL325 MG PO (15:20)
[2019-03-09] MEDS ORDERED: METOPROLOL TART50 M1 PO (15:21)
[2019-03-09] MEDS ORDERED: SPIRONOLACTONE100 MG PO (15:21)
[2019-03-09] MEDS ORDERED: [UNRECOGNIZED DRUG - OTHER] PO (15:21)
[2019-03-09] MEDS ORDERED: METFORMIN HYDR750 MG PO (15:21)
[2019-03-09] MEDS ORDERED: VITAMIN D5000 UNI1 PO (15:22)
[2019-03-09 15:29] LABS: BASO # 0.1 10*3/uL (0.0-0.1); BASO % 0.9 % (0.0-1.0); EOS # 0.3 10*3/uL (0.0-0.4); EOS % 4.9 % (1.0-4.0); HEMATOCRIT 28.2 % (37.0-47.0); HEMOGLOBIN 8.6 g/dl (12.0-16.0); LYMPH # 1.2 10*3/uL (1.3-4.4); LYMPH % 17.2 % (27.0-41.0); MEAN CELL VOLUME 105.6 fl (81.0-99.0); MEAN CORPUSCULAR HGB 32.2 pg (27.0-31.0); MEAN CORPUSCULAR HGB CONC 30.5 g/dl (33.0-37.0); MEAN PLATELET VOLUME 9.4 fl (9.6-12.3); MONO # 0.7 10*3/uL (0.1-1.0); NEUT # 4.4 10*3/uL (2.3-7.9); NEUT % 64.4 % (47.0-73.0); NUCLEATED RED BLOOD CELL 0.4 % (0.0-0.0); PLATELET COUNT AUTOMATED 302 10*3/uL (130-400); RED BLOOD COUNT 2.67 10*6/uL (4.10-5.10); RED CELL DISTRI WIDTH 14.7 % (0-14.5); WHITE BLOOD COUNT 6.8 10*3/uL (4.8-10.8)
[2019-03-09 15:47] LABS: ALBUMIN 2.9 gm/dl (3.1-4.5); ALKALINE PHOSPHATASE 60 U/L (45-117); BUN 8 mg/dl (7-24); CHLORIDE 101 mmol/L (98-107); CREATININE 1.08 mg/dL (0.55-1.02); LIPASE 111 U/L (73-393); POTASSIUM 3.1 mmol/L (3.5-5.1); SGOT/AST 16 IU/L (3-35); SGPT/ALT 31 U/L (12-78); SODIUM 136 mmol/L (136-145); TOTAL PROTEIN 7.9 gm/dL (6.4-8.2); TROPONIN I < 0.015 ng/ml (<0.045)
[2019-03-09 15:48] LABS: ACT PARTIAL THROMBO TIME 24.6 SECONDS (20.0-32.1)
[2019-03-09 16:00] VITALS: BP 144/75
--- NOTE | 2019-03-09 17:21 | NUR ---
PT AT CT
--- NOTE | 2019-03-09 17:26 | NUR ---
PT RETURNED FROM CT. CALLED KRISTINE CHOUDHURY TO TRANSPORT PT TO [facility].
--- NOTE | 2019-03-09 17:50 | NUR ---
A 43, admitted to 5E, under the services of CICI Altamirano DO with a diagnosis of DYSPNEA, SEVERE SEPSIS, PNEUMONITIS. Chief complaint is SHORTNESS OF BREATH. Patient arrived via stretcher from ER. Monitor applied. Initial assessment completed. Vital signs taken and recorded. CICI ALTAMIRANO DO notified of admission to the unit. Orders received. See assessment for past medical history, medications and allergies. Patient and/or family oriented to unit. [address] visitation policy reviewed. Clothing/patient valuable form completed. LOLLY HAAS
--- NOTE | 2019-03-09 17:55 | NUR ---
DR CAMPOS NOTIFIED OF LACTIC ACID. ALSO NOTIFIED PT IS ON MONITOR
[2019-03-09 18:09] VITALS: BP 144/75
--- NOTE | 2019-03-09 18:40 | NUR ---
DR EDMONDSON CALLED AND NOTIFIED OF CONSULT.
[2019-03-09 20:00] VITALS: BP 119/57
[2019-03-09] MEDS ORDERED: ZOLOFT100 MG PO (20:05)
[2019-03-09] MEDS ORDERED: SEROQUEL300 MG PO (20:22)
--- NOTE | 2019-03-09 20:24 | NUR ---
NOTIFIED DR BURROUGHS OF PATIENTS MED REC UP TO DATE AND NEEDING NIGHT DOSES OF SEROQUEL AND ZOLOFT.
[2019-03-10] VITALS: BP 140/70
--- NOTE | 2019-03-10 04:41 | NUR ---
24 HR chart check completed.
[2019-03-10 06:55] LABS: HEMATOCRIT 28.5 % (37.0-47.0); HEMOGLOBIN 8.6 g/dl (12.0-16.0); MEAN CORPUSCULAR HGB 32.6 pg (27.0-31.0); MEAN CORPUSCULAR HGB CONC 30.2 g/dl (33.0-37.0); NUCLEATED RED BLOOD CELL 0.4 % (0.0-0.0); PLATELET COUNT AUTOMATED 325 10*3/uL (130-400); RED BLOOD COUNT 2.64 10*6/uL (4.10-5.10); RED CELL DISTRI WIDTH 14.7 % (0-14.5); WHITE BLOOD COUNT 8.2 10*3/uL (4.8-10.8)
[2019-03-10 06:59] LABS: ALBUMIN 2.9 gm/dl (3.1-4.5); ALKALINE PHOSPHATASE 60 U/L (45-117); BUN 11 mg/dl (7-24); CHLORIDE 106 mmol/L (98-107); FREE T4 0.61 ng/dl (0.76-1.46); PHOSPHOROUS 2.9 mg/dL (2.5-4.9); SGOT/AST 13 IU/L (3-35); SGPT/ALT 27 U/L (12-78); SODIUM 138 mmol/L (136-145); TOTAL PROTEIN 7.7 gm/dL (6.4-8.2)
[2019-03-10 07:07] LABS: POTASSIUM 4.2 mmol/L (3.5-5.1)
[2019-03-10 07:26] LABS: PLATELET SUFFICIENCY NORMAL (NORMAL); TOTAL CELLS COUNTED 100 #CELLS
[2019-03-10 08:00] VITALS: BP 124/68
--- NOTE | 2019-03-10 11:27 | NUR ---
DR EDMONDSON IN TO SEE PATIENT PT SHOWERED, IV CAME OUT. WILL ATTEMPT NEW IV
[2019-03-10 12:00] VITALS: BP 101/55
--- NOTE | 2019-03-10 13:30 | NUR ---
ATTEMPTED IV START X2, PERIPHERAL IV STARTED WITH ULTRASOUND ASSISTANCE. LEFT ACN #20, TOLERATED WELL
[2019-03-10 16:00] VITALS: BP 111/47
[2019-03-10 20:00] VITALS: BP 119/71
[2019-03-11] VITALS: BP 118/55; BP 122/69
--- NOTE | 2019-03-11 02:21 | NUR ---
24 HR chart check completed.
[2019-03-11 07:35] LABS: HEMATOCRIT 25.3 % (37.0-47.0); HEMOGLOBIN 8.6 g/dl (12.0-16.0); MEAN CELL VOLUME 108.6 fl (81.0-99.0); MEAN CORPUSCULAR HGB 36.9 pg (27.0-31.0); MEAN PLATELET VOLUME 10.3 fl (9.6-12.3); NUCLEATED RED BLOOD CELL 0.3 % (0.0-0.0); PLATELET COUNT AUTOMATED 295 10*3/uL (130-400); RED BLOOD COUNT 2.33 10*6/uL (4.10-5.10); WHITE BLOOD COUNT 9.3 10*3/uL (4.8-10.8)
[2019-03-11 07:47] LABS: BUN 19 mg/dl (7-24); CHLORIDE 107 mmol/L (98-107); PHOSPHOROUS 2.9 mg/dL (2.5-4.9); POTASSIUM 4.2 mmol/L (3.5-5.1); SODIUM 141 mmol/L (136-145)
[2019-03-11 08:00] VITALS: BP 117/64
[2019-03-11 08:32] LABS: PLASMA CELL 1 % (0-0); PLATELET SUFFICIENCY NORMAL (NORMAL); POLYCHROMASIA SLIGHT; TOTAL CELLS COUNTED 100 #CELLS
[2019-03-11 08:33] LABS: ROULEAUX SLIGHT
[2019-03-11 12:00] VITALS: BP 127/60
--- NOTE | 2019-03-11 14:38 | NUR ---
Scrub Tech in to talk to patient. Patient states lives at HOME with MIQUEL. There are FEW steps in the home. Physician: Fantasma MENDOZA Pharmacy: [facility] Home health services: NONE Patient's level of ADLs: INDEPENDENT Patient has working utilities: YES DME: NONE Follow-up physician's appointment after d/c: WILL BE MADE BY HOSPITALIST NURSE DIRECTOR ON DISCHARGE Does patient want to access PORTAL?: NO Discharge plan PT STATES SHE LIVES AT HOME WITH HER BOYFRIEND. STATES HE IS NOT VERY NICE TO HER AND SHE IS GOING TO GO TO HER MOTHERS ON DISCHARGE. DENIES THAT SHE WILL HAVE ANY NEEDS WHEN SHE GOES HOME. WILL CONTINUE TO FOLLOW. WILL HAVE A RIDE HOME PER PT.. RYAN GARCIA
[2019-03-11 16:00] VITALS: BP 123/75
--- NOTE | 2019-03-11 17:52 | NUR ---
INFORMED THAT PATIENTS IV IS SYMPTOMATIC. MULTIPLE ATTEMPTS HAVE BEEN MADE TO OBTAIN IV ACCESS WITH NO SUCCESS INCLUDING ULTRASOUND. PATIENT IS REFUSING ANYMORE IV STICKS, INCLUDING POSSIBILITY OF MIDLINE/PICC LINE. PATIENT IS REQUESTING PO ATB INSTEAD. STATES HE WILL CHANGE IV ATB TO PO FORM.
[2019-03-11 20:00] VITALS: BP 121/74
--- NOTE | 2019-03-11 22:16 | NUR ---
PATIENT MEDICATED WITH TYLENOL PER PRN ORDER AND PATIENT REQUEST FOR C/O HEADACHE. RATED PAIN A 8/10 WITH 10 BEING THE WORST. SEE EMAR. REINFORCED USE OF CALL LIGHT.
[2019-03-12] VITALS: BP 126/78
--- NOTE | 2019-03-12 00:03 | NUR ---
24 HR chart check completed.
[2019-03-12 08:00] VITALS: BP 112/60
[2019-03-12 12:00] VITALS: BP 116/62
--- NOTE | 2019-03-12 15:40 | NUR ---
PT TO RADIOLOGY FOR CHEST X-RAY.
[2019-03-12 16:00] VITALS: BP 113/63
[2019-03-12 20:00] VITALS: BP 127/69
[2019-03-13] VITALS: BP 110/48
[2019-03-13 08:00] VITALS: BP 143/67
[2019-03-13] MEDS ORDERED: PREDNISONE10 MG PO (10:58)
[2019-03-13] MEDS ORDERED: CEFDINIR300 MG PO (10:58)
[2019-03-13 12:00] VITALS: BP 127/61
--- NOTE | 2019-03-13 13:18 | NUR ---
Discharge instructions reviewed with patient/family. Patient receptive and verbalizes understanding. Follow-up care arranged. Written instructions given to patient/family. NILESH STRICKLAND
== END 2019-03-13 13:18 | disposition home or self-care (01) | DRG 871 ==
LOC: ED 14:52 → 5E 16:31 → EDHOLD 16:31 → 5E 17:31
PROVIDERS: Internal Medicine; Nurse Practitioner Family; ADMIT Internal Medicine
DX: A41.9 Sepsis, unspecified organism (principal); J18.9 Pneumonia, unspecified organism; J96.01 Acute respiratory failure with hypoxia; E44.0 Moderate protein-calorie malnutrition; Z68.43 Body mass index [BMI] 50.0-59.9, adult; R65.20 Severe sepsis without septic shock; E87.6 Hypokalemia; E66.01 Morbid (severe) obesity due to excess calories; E11.65 Type 2 diabetes mellitus with hyperglycemia; E03.9 Hypothyroidism, unspecified; F41.1 Generalized anxiety disorder; G43.909 Migraine, unspecified, not intractable, without status migrainosus; I34.0 Nonrheumatic mitral (valve) insufficiency; R59.0 Localized enlarged lymph nodes; F32.9 Major depressive disorder, single episode, unspecified; D53.9 Nutritional anemia, unspecified; R16.0 Hepatomegaly, not elsewhere classified; K76.0 Fatty (change of) liver, not elsewhere classified; Z88.2 Allergy status to sulfonamides; Z88.1 Allergy status to other antibiotic agents; Z88.0 Allergy status to penicillin; Z88.8 Allergy status to other drugs, medicaments and biological substances; Z90.49 Acquired absence of other specified parts of digestive tract; Z98.891 History of uterine scar from previous surgery; Z90.711 Acquired absence of uterus with remaining cervical stump; Z82.49 Family history of ischemic heart disease and other diseases of the circulatory system; Z83.3 Family history of diabetes mellitus; Z80.3 Family history of malignant neoplasm of breast; Z84.89 Family history of other specified conditions; Z79.899 Other long term (current) drug therapy; Z79.890 Hormone replacement therapy

== ENCOUNTER → 2019-05-02 | Outpatient (CLI) | payer MEDICARE ==
[~2019-05-02] MED LIST changes: +AIMOVIG AU70 MG/1 ML SQ; +CEFDINIR300 MG PO; +FEROSUL325 MG PO; +LEVOTHYROXINE200 MC2 PO; +METFORMIN HYDR750 MG PO; +METOPROLOL TART50 M1 PO; +PREDNISONE10 MG PO; +QUETIAPINE FUMA25 MG PO; +SEROQUEL300 MG PO; +SPIRONOLACTONE100 MG PO; +VITAMIN D5000 UNI1 PO; +ZOLOFT100 MG PO; +[UNRECOGNIZED DRUG - OTHER] PO
[2019-05-02 11:46] LABS: BILIRUBIN NEGATIVE (NEGATIVE); BLOOD NEGATIVE (NEGATIVE); CLARITY SL CLOUDY (CLEAR); COLOR YELLOW (YELLOW); GLUCOSE NEGATIVE (NEGATIVE); KETONE NEGATIVE (NEGATIVE); LEUKO ESTERASE 1+ (NEGATIVE); NITRITE POSITIVE (NEGATIVE); UROBILINOGEN 0.2 E.U./dl (0.2-1.0)
[2019-05-02 11:55] LABS: BASO # 0.1 10*3/uL (0.0-0.1); BASO % 1.1 % (0.0-1.0); EOS # 0.8 10*3/uL (0.0-0.4); EOS % 10.3 % (1.0-4.0); HEMATOCRIT 35.6 % (37.0-47.0); HEMOGLOBIN 10.8 g/dl (12.0-16.0); LYMPH # 1.9 10*3/uL (1.3-4.4); LYMPH % 25.1 % (27.0-41.0); MEAN CELL VOLUME 98.9 fl (81.0-99.0); MEAN CORPUSCULAR HGB CONC 30.3 g/dl (33.0-37.0); MEAN PLATELET VOLUME 10.4 fl (9.6-12.3); MONO # 0.7 10*3/uL (0.1-1.0); MONO % 8.7 % (3.0-9.0); NEUT # 4.1 10*3/uL (2.3-7.9); NEUT % 54.5 % (47.0-73.0); PLATELET COUNT AUTOMATED 329 10*3/uL (130-400); RED CELL DISTRI WIDTH 14.7 % (0-14.5); WHITE BLOOD COUNT 7.4 10*3/uL (4.8-10.8)
[2019-05-02 12:14] LABS: ALBUMIN 3.5 gm/dl (3.1-4.5); BUN 10 mg/dl (7-24); CHLORIDE 101 mmol/L (98-107); CHOLESTEROL 127 mg/dL (<200); CREATININE 0.89 mg/dL (0.55-1.02); POTASSIUM 3.7 mmol/L (3.5-5.1); SGOT/AST 21 IU/L (3-35); SGPT/ALT 39 U/L (12-78); SODIUM 135 mmol/L (136-145); TRIGLYCERIDES 212 mg/dl (<150); VLDL CHOLESTEROL 42 mg/dL (6-40)
[2019-05-02 12:15] LABS: BACTERIA 4+; WBC 41-50 wbc/hpf (0-5)
[2019-05-02 12:15] LABS: ALKALINE PHOSPHATASE 51 U/L (45-117); HDL CHOLESTEROL 30 mg/dl (40-60); LDL CHOLESTEROL 55 mg/dL (9-159); TOTAL PROTEIN 7.9 gm/dL (6.4-8.2)
== END | disposition home or self-care (01) ==
LOC: LAB 11:19
PROVIDERS: Nurse Practitioner Family
DX: A41.9 Sepsis, unspecified organism (principal); J98.01 Acute bronchospasm; E11.9 Type 2 diabetes mellitus without complications; E66.1 Drug-induced obesity; R53.83 Other fatigue; R06.83 Snoring; Z68.43 Body mass index [BMI] 50.0-59.9, adult

== ENCOUNTER → 2019-06-06 | Outpatient (CLI) | payer MEDICARE ==
[2019-06-06 14:05] LABS: BILIRUBIN NEGATIVE (NEGATIVE); BLOOD TRACE-LYSED (NEGATIVE); CLARITY CLEAR (CLEAR); COLOR YELLOW (YELLOW); GLUCOSE NEGATIVE (NEGATIVE); KETONE NEGATIVE (NEGATIVE); LEUKO ESTERASE TRACE (NEGATIVE); NITRITE POSITIVE (NEGATIVE); PH 5.5 (5.0-9.0); UROBILINOGEN 0.2 E.U./dl (0.2-1.0)
[2019-06-06 14:18] LABS: BACTERIA 4+; MUCOUS 1+
[2019-06-06 14:35] LABS: ALBUMIN 3.5 gm/dl (3.1-4.5); ALKALINE PHOSPHATASE 54 U/L (45-117); BILIRUBIN, DIRECT < 0.1 mg/dL (0.0-0.2); BUN 8 mg/dl (7-24); CHLORIDE 101 mmol/L (98-107); CHOLESTEROL 147 mg/dL (<200); CREATININE 0.88 mg/dL (0.55-1.02); FREE T4 1.52 ng/dl (0.76-1.46); HDL CHOLESTEROL 34 mg/dl (40-60); IRON 95 ug/dL (50-170); LDL CHOLESTEROL 80 mg/dL (9-159); POTASSIUM 3.8 mmol/L (3.5-5.1); SGOT/AST 21 IU/L (3-35); SGPT/ALT 36 U/L (12-78); SODIUM 135 mmol/L (136-145); TOTAL IRON BINDING CAPACITY 488 ug/dl (250-450); TOTAL PROTEIN 8.3 gm/dL (6.4-8.2); TRIGLYCERIDES 163 mg/dl (<150); VLDL CHOLESTEROL 33 mg/dL (6-40)
[2019-06-06 14:41] LABS: THYROID STIM HORMONE (HS) 0.112 uIU/ml (0.358-4.75)
[2019-06-09 13:05] LABS: SACCHAROMYCES CEREVISIAE IGG <20.0 Units (0.0-24.9); TTG/DGP SCREEN Negative (Negative)
[2019-06-09 15:09] LABS: ATYPICAL PANCA Negative (Negative)
== END | disposition home or self-care (01) ==
LOC: LAB 12:59
PROVIDERS: Internal Medicine
DX: E11.9 Type 2 diabetes mellitus without complications (principal); E78.5 Hyperlipidemia, unspecified; E55.9 Vitamin D deficiency, unspecified; E03.9 Hypothyroidism, unspecified; K90.9 Intestinal malabsorption, unspecified

== ENCOUNTER → 2019-06-15 | Outpatient (CLI) | payer MEDICARE | END | disposition home or self-care (01) | LOC: D 13:38 | DX: E11.9 Type 2 diabetes mellitus without complications (principal); E66.9 Obesity, unspecified; E03.9 Hypothyroidism, unspecified; Z68.45 Body mass index [BMI] 70 or greater, adult ==

== ENCOUNTER 2019-09-14 13:34 | Emergency (ER) | payer MEDICARE ==
[~2019-09-14] VITALS: Ht 162.5 cm; Wt 133.4 kg
[2019-09-14 13:45] VITALS: BP 104/65
[2019-09-14] MEDS ORDERED: ANAPROX DS550 MG PO (16:56)
== END 2019-09-14 17:12 | disposition home or self-care (01) ==
LOC: ED 13:34
DX: M79.641 Pain in right hand (principal); E11.9 Type 2 diabetes mellitus without complications; E03.9 Hypothyroidism, unspecified; G43.909 Migraine, unspecified, not intractable, without status migrainosus; E07.9 Disorder of thyroid, unspecified; Z88.1 Allergy status to other antibiotic agents; Z88.2 Allergy status to sulfonamides; Z88.0 Allergy status to penicillin; Z88.8 Allergy status to other drugs, medicaments and biological substances; Z79.899 Other long term (current) drug therapy

== ENCOUNTER → 2019-10-19 | Outpatient (CLI) | payer MEDICARE ==
[2019-10-19 11:20] LABS: ALBUMIN 3.4 gm/dl (3.1-4.5); BILIRUBIN, DIRECT < 0.1 mg/dL (0.0-0.2); BUN 12 mg/dl (7-24); CHLORIDE 104 mmol/L (98-107); CHOLESTEROL 137 mg/dL (<200); CREATININE 0.92 mg/dL (0.55-1.02); FREE T4 0.95 ng/dl (0.76-1.46); IRON 72 ug/dL (50-170); SGOT/AST 12 IU/L (3-35); SGPT/ALT 24 U/L (12-78); SODIUM 139 mmol/L (136-145); TOTAL IRON BINDING CAPACITY 487 ug/dl (250-450); TOTAL PROTEIN 7.8 gm/dL (6.4-8.2); TRIGLYCERIDES 196 mg/dl (<150); VLDL CHOLESTEROL 39 mg/dL (6-40)
[2019-10-19 11:21] LABS: ALKALINE PHOSPHATASE 62 U/L (45-117)
[2019-10-19 11:30] LABS: HDL CHOLESTEROL 34 mg/dl (40-60); LDL CHOLESTEROL 64 mg/dL (9-159)
[2019-10-24 17:06] LABS: ATYPICAL PANCA Negative (Negative); TTG/DGP SCREEN Negative (Negative)
== END | disposition home or self-care (01) ==
LOC: LAB 10:15
PROVIDERS: Internal Medicine
DX: E11.9 Type 2 diabetes mellitus without complications (principal); L68.0 Hirsutism; K90.9 Intestinal malabsorption, unspecified; E78.5 Hyperlipidemia, unspecified; E55.9 Vitamin D deficiency, unspecified; E03.9 Hypothyroidism, unspecified

== ENCOUNTER 2019-12-26 19:43 | Emergency (ER) | payer MEDICARE ==
[~2019-12-26] VITALS: Ht 162.5 cm; Wt 135.2 kg
[2019-12-26 20:08] VITALS: BP 126/78
[2019-12-26] MEDS ORDERED: ZITHROMAX250 MG PO (23:12)
== END 2019-12-26 23:28 | disposition home or self-care (01) ==
LOC: ED 19:43
DX: J40 Bronchitis, not specified as acute or chronic (principal); J32.9 Chronic sinusitis, unspecified; E11.9 Type 2 diabetes mellitus without complications; E03.9 Hypothyroidism, unspecified; F32.9 Major depressive disorder, single episode, unspecified; Z88.2 Allergy status to sulfonamides; Z88.0 Allergy status to penicillin; Z88.8 Allergy status to other drugs, medicaments and biological substances; Z79.899 Other long term (current) drug therapy; Z79.84 Long term (current) use of oral hypoglycemic drugs; Z90.710 Acquired absence of both cervix and uterus

== ENCOUNTER 2020-01-13 15:06 | Emergency (ER) | payer OTHER, MEDICARE ==
[~2020-01-13] VITALS: Ht 160 cm; Wt 138.3 kg
[2020-01-13 15:06] VITALS: BP 165/75
[~2020-01-13 15:06] MED LIST changes: +ZITHROMAX250 MG PO
[2020-01-13] MEDS ORDERED: IBUPROFEN600 MG PO (16:27)
[2020-01-13] MEDS ORDERED: NORCO 5-325 TA1 EACH PO (17:03)
== END 2020-01-13 17:55 | disposition home or self-care (01) ==
LOC: ED 15:06
DX: S62.162A Displaced fracture of pisiform, left wrist, initial encounter for closed fracture (principal); S20.219A Contusion of unspecified front wall of thorax, initial encounter; E03.9 Hypothyroidism, unspecified; G43.909 Migraine, unspecified, not intractable, without status migrainosus; E11.40 Type 2 diabetes mellitus with diabetic neuropathy, unspecified; Z88.1 Allergy status to other antibiotic agents; Z88.2 Allergy status to sulfonamides; Z88.8 Allergy status to other drugs, medicaments and biological substances; Z79.899 Other long term (current) drug therapy; Z79.2 Long term (current) use of antibiotics; Z90.710 Acquired absence of both cervix and uterus; Z90.49 Acquired absence of other specified parts of digestive tract; Z98.890 Other specified postprocedural states; V46.4XXA Person boarding or alighting a car injured in collision with other nonmotor vehicle, initial encounter; Y93.I9 Activity, other involving external motion; Y92.488 Other paved roadways as the place of occurrence of the external cause; Y99.8 Other external cause status

== ENCOUNTER → 2020-04-13 | Outpatient (CLI) | payer MEDICARE ==
[~2020-04-13] MED LIST changes: +IBUPROFEN600 MG PO; +NORCO 5-325 TA1 EACH PO
[2020-04-13 14:16] LABS: BILIRUBIN NEGATIVE (NEGATIVE); CLARITY CLEAR (CLEAR); COLOR YELLOW (YELLOW); GLUCOSE NEGATIVE (NEGATIVE); KETONE NEGATIVE (NEGATIVE)
[2020-04-13 14:17] LABS: BLOOD NEGATIVE (NEGATIVE); LEUKO ESTERASE NEGATIVE (NEGATIVE); NITRITE NEGATIVE (NEGATIVE); UROBILINOGEN 0.2 E.U./dl (0.2-1.0)
[2020-04-13 14:24] LABS: ALBUMIN 3.7 gm/dl (3.1-4.5); BILIRUBIN, DIRECT < 0.1 mg/dL (0.0-0.2); BUN 15 mg/dl (7-24); CHLORIDE 104 mmol/L (98-107); CHOLESTEROL 176 mg/dL (<200); POTASSIUM 3.9 mmol/L (3.5-5.1); SGOT/AST 20 IU/L (3-35); SGPT/ALT 26 U/L (12-78); SODIUM 137 mmol/L (136-145)
[2020-04-13 14:26] LABS: BACTERIA 2+; MUCOUS TRACE; RBC 0-2 rbc/hpf (0-2)
[2020-04-13 14:32] LABS: ALKALINE PHOSPHATASE 57 U/L (45-117); FREE T4 0.78 ng/dl (0.76-1.46); HDL CHOLESTEROL 40 mg/dl (40-60); LDL CHOLESTEROL 100 mg/dL (9-159); TOTAL PROTEIN 8.5 gm/dL (6.4-8.2); TRIGLYCERIDES 178 mg/dl (<150); VLDL CHOLESTEROL 36 mg/dL (6-40)
== END | disposition home or self-care (01) ==
LOC: LAB 12:42
PROVIDERS: Internal Medicine
DX: E11.9 Type 2 diabetes mellitus without complications (principal); E78.5 Hyperlipidemia, unspecified; E03.9 Hypothyroidism, unspecified; E55.9 Vitamin D deficiency, unspecified

== ENCOUNTER → 2020-08-06 | Outpatient (CLI) | payer MEDICARE | END | disposition home or self-care (01) | LOC: US 12:31 → MAMMO 14:00 | PROVIDERS: ATTEND Nurse Practitioner Family | DX: Z12.31 Encounter for screening mammogram for malignant neoplasm of breast (principal); R93.9 Diagnostic imaging inconclusive due to excess body fat of patient; R63.4 Abnormal weight loss; R10.2 Pelvic and perineal pain ==

== ENCOUNTER → 2021-02-22 | Outpatient (CLI) | payer MEDICARE ==
[2021-02-22 14:20] LABS: BILIRUBIN Negative (Negative); BLOOD Negative (Negative); CLARITY Cloudy (Clear); COLOR Yellow (Yellow); GLUCOSE 2+ (Negative); KETONE Negative (Negative); LEUKO ESTERASE 2+ (Negative); NITRITE Negative (Negative); PH 5.5 (4.5-8.0); SPECIFIC GRAVITY 1.015 (1.001-1.030); UROBILINOGEN 0.2 E.U./dl (0.0-1.0)
[2021-02-22 14:38] LABS: ALBUMIN 3.6 gm/dl (3.1-4.5); BILIRUBIN, DIRECT 0.1 mg/dL (0.0-0.2); BUN 11 mg/dl (7-24); CHLORIDE 102 mmol/L (98-107); CREATININE 1.04 mg/dL (0.55-1.02); POTASSIUM 4.2 mmol/L (3.5-5.1); SGOT/AST 18 IU/L (3-35); SGPT/ALT 31 U/L (12-78); SODIUM 135 mmol/L (136-145)
[2021-02-22 14:46] LABS: ALKALINE PHOSPHATASE 60 U/L (45-117); CHOLESTEROL 167 mg/dL (<200); FREE T4 0.64 ng/dl (0.76-1.46); LDL CHOLESTEROL 103 mg/dL (9-159); TOTAL PROTEIN 8.5 gm/dL (6.4-8.2); TRIGLYCERIDES 92 mg/dl (<150)
[2021-02-22 15:37] LABS: BACTERIA 3+; WBC 41-50 wbc/hpf (0-5)
== END | disposition home or self-care (01) ==
LOC: LAB 13:29
PROVIDERS: ATTEND Internal Medicine
DX: E11.9 Type 2 diabetes mellitus without complications (principal); E78.5 Hyperlipidemia, unspecified; L68.0 Hirsutism; E55.9 Vitamin D deficiency, unspecified; E03.9 Hypothyroidism, unspecified

== ENCOUNTER → 2021-06-20 | Outpatient (CLI) | payer MEDICARE ==
[2021-06-20 11:40] LABS: BILIRUBIN Negative (Negative); BLOOD Negative (Negative); CLARITY Cloudy (Clear); COLOR Yellow (Yellow); GLUCOSE 3+ (Negative); KETONE Negative (Negative); LEUKO ESTERASE 2+ (Negative); NITRITE Negative (Negative); SPECIFIC GRAVITY 1.025 (1.001-1.030); UROBILINOGEN 0.2 E.U./dl (0.0-1.0)
[2021-06-20 11:54] LABS: EPITHELIAL CELLS 0-2; MUCOUS 1+; RBC 16-20 rbc/hpf (0-2)
[2021-06-20 11:55] LABS: BACTERIA 4+
[2021-06-20 12:07] LABS: CHLORIDE 106 mmol/L (98-107); POTASSIUM 3.8 mmol/L (3.5-5.1); SODIUM 138 mmol/L (136-145)
[2021-06-20 12:19] LABS: ALKALINE PHOSPHATASE 49 U/L (45-117); BUN 13 mg/dl (7-24); CHOLESTEROL 139 mg/dL (<200); CREATININE 0.88 mg/dL (0.55-1.02); FREE T4 0.94 ng/dl (0.76-1.46); LDL CHOLESTEROL 72 mg/dL (9-159); SGOT/AST 14 IU/L (3-35); SGPT/ALT 25 U/L (12-78); THYROID STIM HORMONE (HS) 0.073 uIU/ml (0.358-4.75); TOTAL PROTEIN 7.4 gm/dL (6.4-8.2); TRIGLYCERIDES 180 mg/dl (<150)
== END | disposition home or self-care (01) ==
LOC: LAB 10:56
PROVIDERS: ATTEND Internal Medicine
DX: E78.5 Hyperlipidemia, unspecified (principal); E55.9 Vitamin D deficiency, unspecified; E11.9 Type 2 diabetes mellitus without complications; E03.9 Hypothyroidism, unspecified

== ENCOUNTER → 2021-08-30 | Outpatient (CLI) | payer MEDICARE | END | disposition home or self-care (01) | LOC: RAD 08:26 | PROVIDERS: ATTEND Nurse Practitioner Family | DX: M17.11 Unilateral primary osteoarthritis, right knee (principal) ==

== ENCOUNTER → 2021-10-23 | Outpatient (CLI) | payer OTHER | END | disposition home or self-care (01) | LOC: US 10:09 → MAMMO 10:30 → US 11:00 | PROVIDERS: ATTEND Nurse Practitioner Family | DX: R10.32 Left lower quadrant pain (principal); Z90.710 Acquired absence of both cervix and uterus; Z90.721 Acquired absence of ovaries, unilateral ==

== ENCOUNTER → 2021-11-13 | Outpatient (CLI) | payer OTHER | END | disposition home or self-care (01) | LOC: MAMMO 11:48 | PROVIDERS: ATTEND Nurse Practitioner Family | DX: Z12.31 Encounter for screening mammogram for malignant neoplasm of breast (principal); N64.89 Other specified disorders of breast ==

== ENCOUNTER → 2022-02-11 | Outpatient (CLI) | payer OTHER ==
[2022-02-11 12:41] LABS: BASO # 0.1 10*3/uL (0.0-0.1); BASO % 1.1 % (0.0-1.0); EOS # 0.2 10*3/uL (0.0-0.4); EOS % 3.8 % (1.0-4.0); HEMATOCRIT 36.3 % (37.0-47.0); LYMPH # 1.4 10*3/uL (1.3-4.4); LYMPH % 27.2 % (27.0-41.0); MEAN CELL VOLUME 96.8 fl (81.0-99.0); MEAN CORPUSCULAR HGB 30.9 pg (27.0-31.0); MEAN PLATELET VOLUME 8.9 fl (9.6-12.3); MONO # 0.4 10*3/uL (0.1-1.0); MONO % 8.4 % (3.0-9.0); NEUT # 3.1 10*3/uL (2.3-7.9); NEUT % 58.9 % (47.0-73.0); PLATELET COUNT AUTOMATED 274 10*3/uL (130-400); RED BLOOD COUNT 3.75 10*6/uL (4.10-5.10); RED CELL DISTRI WIDTH 13.5 % (0-14.5); WHITE BLOOD COUNT 5.3 10*3/uL (4.8-10.8)
[2022-02-11 12:42] LABS: BILIRUBIN Negative (Negative); BLOOD Negative (Negative); CLARITY Clear (Clear); COLOR Yellow (Yellow); GLUCOSE 3+ (Negative); KETONE Negative (Negative); LEUKO ESTERASE Negative (Negative); NITRITE Negative (Negative); PH 5.5 (4.5-8.0); SPECIFIC GRAVITY 1.025 (1.001-1.030); UROBILINOGEN 0.2 E.U./dl (0.0-1.0)
[2022-02-11 12:59] LABS: CHLORIDE 105 mmol/L (98-107); POTASSIUM 3.5 mmol/L (3.5-5.1); SODIUM 136 mmol/L (136-145)
[2022-02-11 13:18] LABS: ALKALINE PHOSPHATASE 65 U/L (45-117); CHOLESTEROL 166 mg/dL (<200); FREE T4 0.54 ng/dl (0.76-1.46); LDL CHOLESTEROL 93 mg/dL (9-159); SGOT/AST 12 IU/L (3-35); SGPT/ALT 19 U/L (12-78); TOTAL PROTEIN 7.7 gm/dL (6.4-8.2); TRIGLYCERIDES 188 mg/dl (<150)
[2022-02-11 13:19] LABS: ALKALINE PHOSPHATASE 66 U/L (45-117); BUN 12 mg/dl (7-24); CREATININE 0.81 mg/dL (0.55-1.02); IRON 81 ug/dL (50-170); SGOT/AST 11 IU/L (3-35); SGPT/ALT 20 U/L (12-78); TOTAL IRON BINDING CAPACITY 414 ug/dl (250-450); TOTAL PROTEIN 7.7 gm/dL (6.4-8.2)
[2022-02-11 13:25] LABS: BACTERIA 2+; EPITHELIAL CELLS 16-20; WBC 31-40 wbc/hpf (0-5)
[2022-02-11 14:11] LABS: VITAMIN D, 25-HYDROXY 28.1 ng/mL (30-100)
[2022-02-12 10:33] LABS: DHEA SULFATE 38.4 ug/dL (41.2-243.7)
== END | disposition home or self-care (01) ==
LOC: LAB 12:09
PROVIDERS: Nurse Practitioner Family; ATTEND Internal Medicine
DX: E11.9 Type 2 diabetes mellitus without complications (principal); E78.5 Hyperlipidemia, unspecified; E03.9 Hypothyroidism, unspecified; E55.9 Vitamin D deficiency, unspecified; L68.0 Hirsutism

== ENCOUNTER → 2022-03-06 | Outpatient (CLI) | payer OTHER | END | disposition home or self-care (01) | LOC: LAB 07:18 | PROVIDERS: ATTEND Internal Medicine | DX: E66.01 Morbid (severe) obesity due to excess calories (principal); Z79.899 Other long term (current) drug therapy ==

== ENCOUNTER → 2022-05-20 | Outpatient (CLI) | payer OTHER ==
[2022-05-20 11:54] LABS: BASO # 0.1 10*3/uL (0.0-0.1); BASO % 1.2 % (0.0-1.0); EOS # 0.2 10*3/uL (0.0-0.4); EOS % 3.8 % (1.0-4.0); HEMATOCRIT 35.8 % (37.0-47.0); LYMPH # 1.8 10*3/uL (1.3-4.4); LYMPH % 31.9 % (27.0-41.0); MEAN CELL VOLUME 95.7 fl (81.0-99.0); MEAN CORPUSCULAR HGB 30.2 pg (27.0-31.0); MEAN CORPUSCULAR HGB CONC 31.6 g/dl (33.0-37.0); MEAN PLATELET VOLUME 9.5 fl (9.6-12.3); MONO # 0.5 10*3/uL (0.1-1.0); MONO % 9.4 % (3.0-9.0); NEUT # 3.1 10*3/uL (2.3-7.9); NEUT % 53.5 % (47.0-73.0); PLATELET COUNT AUTOMATED 342 10*3/uL (130-400); RED BLOOD COUNT 3.74 10*6/uL (4.10-5.10); RED CELL DISTRI WIDTH 13.7 % (0-14.5); WHITE BLOOD COUNT 5.8 10*3/uL (4.8-10.8)
[2022-05-20 12:11] LABS: BUN 13 mg/dl (7-24); CHLORIDE 104 mmol/L (98-107); CHOLESTEROL 89 mg/dL (<200); CREATININE 0.86 mg/dL (0.55-1.02); LDL CHOLESTEROL 38 mg/dL (9-159); POTASSIUM 3.7 mmol/L (3.5-5.1); SGOT/AST 9 IU/L (3-35); SGPT/ALT 20 U/L (12-78); SODIUM 140 mmol/L (136-145); TOTAL PROTEIN 7.6 gm/dL (6.4-8.2); TRIGLYCERIDES 101 mg/dl (<150)
[2022-05-20 12:17] LABS: ALKALINE PHOSPHATASE 67 U/L (45-117)
[2022-05-20 12:25] LABS: THYROID STIM HORMONE (HS) 0.883 uIU/ml (0.358-4.75)
== END | disposition home or self-care (01) ==
LOC: LAB 11:20
PROVIDERS: ATTEND Nurse Practitioner Family
DX: D50.8 Other iron deficiency anemias (principal); E88.9 Metabolic disorder, unspecified; E03.9 Hypothyroidism, unspecified; Z23 Encounter for immunization; D64.9 Anemia, unspecified; Z79.899 Other long term (current) drug therapy

== ENCOUNTER → 2022-06-27 | Outpatient (CLI) | payer OTHER ==
[2022-06-27 09:39] LABS: BILIRUBIN Negative (Negative); BLOOD Negative (Negative); CLARITY Cloudy (Clear); COLOR Yellow (Yellow); GLUCOSE 3+ (Negative); KETONE Trace (Negative); LEUKO ESTERASE 1+ (Negative); NITRITE Positive (Negative); PH 5.5 (4.5-8.0); SPECIFIC GRAVITY >= 1.030 (1.001-1.030); UROBILINOGEN 0.2 E.U./dl (0.0-1.0)
[2022-06-27 09:54] LABS: BACTERIA 4+; EPITHELIAL CELLS 31-40; WBC 41-50 wbc/hpf (0-5)
[2022-06-27 10:00] LABS: ALKALINE PHOSPHATASE 73 U/L (45-117); BUN 13 mg/dl (7-24); CHLORIDE 105 mmol/L (98-107); CHOLESTEROL 96 mg/dL (<200); CREATININE 0.91 mg/dL (0.55-1.02); LDL CHOLESTEROL 38 mg/dL (9-159); POTASSIUM 3.5 mmol/L (3.5-5.1); SGOT/AST 17 IU/L (3-35); SGPT/ALT 28 U/L (12-78); SODIUM 139 mmol/L (136-145); TOTAL PROTEIN 7.9 gm/dL (6.4-8.2); TRIGLYCERIDES 110 mg/dl (<150)
== END | disposition home or self-care (01) ==
LOC: LAB 09:04
PROVIDERS: ATTEND Internal Medicine
DX: E11.9 Type 2 diabetes mellitus without complications (principal); E78.5 Hyperlipidemia, unspecified; E66.01 Morbid (severe) obesity due to excess calories; E55.9 Vitamin D deficiency, unspecified; E03.9 Hypothyroidism, unspecified; Z79.899 Other long term (current) drug therapy

== ENCOUNTER → 2022-10-06 | Outpatient (CLI) | payer OTHER ==
[2022-10-06 11:18] LABS: BASO # 0.1 10*3/uL (0.0-0.1); BASO % 1.5 % (0.0-1.0); EOS # 0.2 10*3/uL (0.0-0.4); HEMATOCRIT 38.2 % (37.0-47.0); LYMPH # 2.5 10*3/uL (1.3-4.4); LYMPH % 40.4 % (27.0-41.0); MEAN CELL VOLUME 97.2 fl (81.0-99.0); MEAN CORPUSCULAR HGB 30.5 pg (27.0-31.0); MEAN CORPUSCULAR HGB CONC 31.4 g/dl (33.0-37.0); MEAN PLATELET VOLUME 9.2 fl (9.6-12.3); MONO # 0.5 10*3/uL (0.1-1.0); MONO % 8.3 % (3.0-9.0); NEUT # 2.8 10*3/uL (2.3-7.9); PLATELET COUNT AUTOMATED 289 10*3/uL (130-400); RED BLOOD COUNT 3.93 10*6/uL (4.10-5.10); RED CELL DISTRI WIDTH 15.8 % (0-14.5); WHITE BLOOD COUNT 6.1 10*3/uL (4.8-10.8)
[2022-10-06 11:47] LABS: ALKALINE PHOSPHATASE 65 U/L (46-116); BUN 10 mg/dl (9-23); CHLORIDE 99 mmol/L (98-107); CHOLESTEROL 133 mg/dL (<200); LDL CHOLESTEROL 76 mg/dL (9-159); POTASSIUM 3.7 mmol/L (3.4-5.1); SGPT/ALT 17 U/L (10-49); THYROID STIM HORMONE (HS) 78.224 uIU/ml (0.550-4.780); TOTAL PROTEIN 7.5 gm/dL (6.0-8.0); TRIGLYCERIDES 95 mg/dl (<150)
== END | disposition home or self-care (01) ==
LOC: LAB 10:42
PROVIDERS: ATTEND Nurse Practitioner Family
DX: E11.9 Type 2 diabetes mellitus without complications (principal); E03.9 Hypothyroidism, unspecified; E66.01 Morbid (severe) obesity due to excess calories; D64.9 Anemia, unspecified; R53.83 Other fatigue

== ENCOUNTER → 2022-11-21 | Outpatient (CLI) | payer OTHER ==
[2022-11-21 13:36] LABS: ALKALINE PHOSPHATASE 59 U/L (46-116); BUN 10 mg/dl (9-23); CHLORIDE 104 mmol/L (98-107); CHOLESTEROL 175 mg/dL (<200); FREE T4 0.39 ng/dl (0.89-1.76); LDL CHOLESTEROL 107 mg/dL (9-159); POTASSIUM 3.7 mmol/L (3.4-5.1); SGPT/ALT 13 U/L (10-49); TOTAL PROTEIN 7.4 gm/dL (6.0-8.0); TRIGLYCERIDES 157 mg/dl (<150)
[2022-11-21 13:37] LABS: THYROID STIM HORMONE (HS) 67.667 uIU/ml (0.550-4.780)
[2022-11-21 14:09] LABS: VITAMIN D, 25-HYDROXY 36.1 ng/mL (30-100)
[2022-11-22 14:09] LABS: t-TRANSGLUTAMINASE (tTG) IGA 2 U/mL (0-3)
== END | disposition home or self-care (01) ==
LOC: LAB 12:21
PROVIDERS: ATTEND Internal Medicine
DX: E11.9 Type 2 diabetes mellitus without complications (principal); E55.9 Vitamin D deficiency, unspecified; E03.9 Hypothyroidism, unspecified; E78.5 Hyperlipidemia, unspecified

== ENCOUNTER → 2023-09-28 | Outpatient (CLI) | payer OTHER | LOC: MAMMO 00:23 | PROVIDERS: ATTEND Nurse Practitioner Family | DX: Z12.31 Encounter for screening mammogram for malignant neoplasm of breast (principal); Z00.00 Encounter for general adult medical examination without abnormal findings ==

== ENCOUNTER → 2023-10-13 | Outpatient (CLI) | payer OTHER ==
[2023-10-13 13:12] LABS: BASO # 0.1 10*3/uL (0.0-0.1); BASO % 0.8 % (0.0-1.0); EOS # 0.2 10*3/uL (0.0-0.4); EOS % 2.6 % (1.0-4.0); HEMATOCRIT 40.3 % (37.0-47.0); MEAN CELL VOLUME 98.5 fl (81.0-99.0); MEAN CORPUSCULAR HGB 31.5 pg (27.0-31.0); MEAN PLATELET VOLUME 9.6 fl (9.6-12.3); MONO # 0.7 10*3/uL (0.1-1.0); MONO % 9.3 % (3.0-9.0); NEUT # 4.3 10*3/uL (2.3-7.9); NEUT % 59.9 % (47.0-73.0); PLATELET COUNT AUTOMATED 294 10*3/uL (130-400); RED BLOOD COUNT 4.09 10*6/uL (4.10-5.10); RED CELL DISTRI WIDTH 12.3 % (0-14.5); WHITE BLOOD COUNT 7.2 10*3/uL (4.8-10.8)
[2023-10-13 13:24] LABS: URINE CREATININE RANDOM 162.17 mg/dL
== END | disposition home or self-care (01) ==
LOC: LAB 12:32
PROVIDERS: ATTEND Nurse Practitioner Family
DX: Z12.31 Encounter for screening mammogram for malignant neoplasm of breast (principal); Z00.00 Encounter for general adult medical examination without abnormal findings; E03.9 Hypothyroidism, unspecified; E66.9 Obesity, unspecified; E78.5 Hyperlipidemia, unspecified; E11.9 Type 2 diabetes mellitus without complications

== ENCOUNTER → 2023-11-06 | Outpatient (CLI) | payer OTHER ==
[2023-11-06 11:32] LABS: BILIRUBIN Negative (Negative); BLOOD Negative (Negative); CLARITY Clear (Clear); COLOR Yellow (Yellow); GLUCOSE 3+ (Negative); KETONE Negative (Negative); LEUKO ESTERASE 1+ (Negative); NITRITE Negative (Negative); PH 5.5 (4.5-8.0); SPECIFIC GRAVITY 1.025 (1.001-1.030); UROBILINOGEN 0.2 E.U./dl (0.0-1.0)
[2023-11-06 11:45] LABS: BACTERIA 3+; WBC 51-100 wbc/hpf (0-5)
[2023-11-06 11:46] LABS: EPITHELIAL CELLS 0-2
[2023-11-06 12:09] LABS: ALKALINE PHOSPHATASE 72 U/L (46-116); BUN 9 mg/dl (9-23); CHLORIDE 104 mmol/L (98-107); CHOLESTEROL 93 mg/dL (<200); FREE T4 1.44 ng/dl (0.89-1.76); LDL CHOLESTEROL 42 mg/dL (9-159); POTASSIUM 3.8 mmol/L (3.4-5.1); SGPT/ALT 25 U/L (5-49); TOTAL PROTEIN 7.7 gm/dL (6.0-8.0); TRIGLYCERIDES 100 mg/dl (<150); VITAMIN D, 25-HYDROXY 34.2 ng/mL (30-100)
[2023-11-07 08:11] LABS: DHEA SULFATE 55.1 ug/dL (41.2-243.7)
[2023-11-07 17:07] LABS: t-TRANSGLUTAMINASE (tTG) IGA 3 U/mL (0-3); t-TRANSGLUTAMINASE (tTG) IgG 9 U/mL (0-5)
[2023-11-09 09:06] LABS: ENDOMYSIAL ANTIBODY IgA Negative (Negative)
== END ==
LOC: LAB 10:40
PROVIDERS: ATTEND Internal Medicine
DX: E11.9 Type 2 diabetes mellitus without complications (principal); E78.5 Hyperlipidemia, unspecified; E55.9 Vitamin D deficiency, unspecified; E61.1 Iron deficiency; K90.9 Intestinal malabsorption, unspecified; E03.9 Hypothyroidism, unspecified; L68.0 Hirsutism

== ENCOUNTER → 2024-03-04 | Outpatient (CLI) | payer OTHER ==
[2024-03-04 15:04] LABS: BILIRUBIN Negative (Negative); BLOOD Negative (Negative); COLOR Yellow (Yellow); GLUCOSE 3+ (Negative); NITRITE Positive (Negative); SPECIFIC GRAVITY >= 1.030 (1.001-1.030)
[2024-03-04 15:29] LABS: ALKALINE PHOSPHATASE 77 U/L (46-116); BUN 9 mg/dl (9-23); CHLORIDE 105 mmol/L (98-107); CHOLESTEROL 116 mg/dL (<200); LDL CHOLESTEROL 62 mg/dL (9-159); POTASSIUM 3.5 mmol/L (3.4-5.1); SGPT/ALT 14 U/L (5-49); TOTAL PROTEIN 7.1 gm/dL (6.0-8.0); TRIGLYCERIDES 83 mg/dl (<150)
[2024-03-04 15:41] LABS: CLARITY Clear (Clear); KETONE Negative (Negative); LEUKO ESTERASE Negative (Negative)
[2024-03-04 16:09] LABS: BACTERIA 4+; WBC 21-30 wbc/hpf (0-5)
== END | disposition home or self-care (01) ==
LOC: LAB 14:27
PROVIDERS: ATTEND Internal Medicine
DX: E03.9 Hypothyroidism, unspecified (principal); E11.9 Type 2 diabetes mellitus without complications; E78.5 Hyperlipidemia, unspecified

== ENCOUNTER → 2024-06-09 | Outpatient (CLI) | payer OTHER ==
[2024-06-09 09:19] LABS: BASO # 0.1 10*3/uL (0.0-0.1); BASO % 1.4 % (0.0-1.0); EOS # 0.2 10*3/uL (0.0-0.4); EOS % 2.5 % (1.0-4.0); HEMATOCRIT 39.8 % (37.0-47.0); LYMPH # 2.6 10*3/uL (1.3-4.4); LYMPH % 40.9 % (27.0-41.0); MEAN CELL VOLUME 98.5 fl (81.0-99.0); MEAN CORPUSCULAR HGB 33.4 pg (27.0-31.0); MEAN CORPUSCULAR HGB CONC 33.9 g/dl (33.0-37.0); MEAN PLATELET VOLUME 9.4 fl (9.6-12.3); MONO # 0.5 10*3/uL (0.1-1.0); MONO % 7.9 % (3.0-9.0); NEUT % 46.7 % (47.0-73.0); PLATELET COUNT AUTOMATED 277 10*3/uL (130-400); RED BLOOD COUNT 4.04 10*6/uL (4.10-5.10); RED CELL DISTRI WIDTH 13.2 % (0-14.5); WHITE BLOOD COUNT 6.3 10*3/uL (4.8-10.8)
[2024-06-09 09:49] LABS: URINE CREATININE RANDOM 103.28 mg/dL
[2024-06-09 09:52] LABS: ALKALINE PHOSPHATASE 76 U/L (46-116); BUN 12 mg/dl (9-23); CHLORIDE 101 mmol/L (98-107); CHOLESTEROL 172 mg/dL (<200); LDL CHOLESTEROL 101 mg/dL (9-159); POTASSIUM 4.4 mmol/L (3.4-5.1); SGPT/ALT 19 U/L (5-49); TOTAL PROTEIN 7.3 gm/dL (6.0-8.0); TRIGLYCERIDES 141 mg/dl (<150)
== END | disposition home or self-care (01) ==
LOC: LAB 08:46
PROVIDERS: ATTEND Nurse Practitioner Family
DX: E03.9 Hypothyroidism, unspecified (principal); E66.01 Morbid (severe) obesity due to excess calories; K76.0 Fatty (change of) liver, not elsewhere classified

== ENCOUNTER 2024-06-19 13:59 | Emergency (ER) | payer OTHER ==
[~2024-06-19] VITALS: Ht 160 cm; Wt 127.0 kg
[2024-06-19 14:14] VITALS: BP 133/70
== END 2024-06-19 15:00 | disposition home or self-care (01) ==
LOC: ED 13:59
DX: S99.922A Unspecified injury of left foot, initial encounter (principal); E11.9 Type 2 diabetes mellitus without complications; G43.909 Migraine, unspecified, not intractable, without status migrainosus; E87.6 Hypokalemia; F41.9 Anxiety disorder, unspecified; F32.A Depression, unspecified; E03.9 Hypothyroidism, unspecified; D64.9 Anemia, unspecified; Z88.2 Allergy status to sulfonamides; Z88.1 Allergy status to other antibiotic agents; Z88.0 Allergy status to penicillin; Z88.8 Allergy status to other drugs, medicaments and biological substances; Z90.49 Acquired absence of other specified parts of digestive tract; Z90.711 Acquired absence of uterus with remaining cervical stump; Z98.890 Other specified postprocedural states; W22.8XXA Striking against or struck by other objects, initial encounter; Y93.89 Activity, other specified; Y92.89 Other specified places as the place of occurrence of the external cause; Y99.8 Other external cause status

== ENCOUNTER → 2024-07-06 | Outpatient (CLI) | payer OTHER ==
[2024-07-06 12:25] LABS: BILIRUBIN Negative (Negative); BLOOD Negative (Negative); CLARITY Clear (Clear); COLOR Yellow (Yellow); GLUCOSE 3+ (Negative); KETONE Negative (Negative); LEUKO ESTERASE Trace (Negative); NITRITE Negative (Negative); PH 5.5 (4.5-8.0); UROBILINOGEN 0.2 E.U./dl (0.0-1.0)
[2024-07-06 13:04] LABS: ALKALINE PHOSPHATASE 85 U/L (46-116); BUN 11 mg/dl (9-23); CHLORIDE 101 mmol/L (98-107); CHOLESTEROL 149 mg/dL (<200); FREE T4 0.88 ng/dl (0.89-1.76); LDL CHOLESTEROL 76 mg/dL (9-159); SGPT/ALT 13 U/L (5-49); TRIGLYCERIDES 89 mg/dl (<150)
[2024-07-06 13:13] LABS: BACTERIA 4+; WBC 21-30 wbc/hpf (0-5)
[2024-07-07 08:11] LABS: DHEA SULFATE 74.3 ug/dL (41.2-243.7)
== END | disposition home or self-care (01) ==
LOC: LAB 11:49
PROVIDERS: ATTEND Internal Medicine
DX: E11.9 Type 2 diabetes mellitus without complications (principal); E03.9 Hypothyroidism, unspecified; E78.5 Hyperlipidemia, unspecified; L68.0 Hirsutism; N39.0 Urinary tract infection, site not specified

== ENCOUNTER → 2024-12-09 | Outpatient (CLI) | payer OTHER ==
[2024-12-09 10:59] LABS: BILIRUBIN Negative (Negative); BLOOD Negative (Negative); CLARITY Cloudy (Clear); COLOR Yellow (Yellow); GLUCOSE Negative (Negative); KETONE Negative (Negative); LEUKO ESTERASE 2+ (Negative); NITRITE Positive (Negative); PH 5.5 (4.5-8.0)
[2024-12-09 11:12] LABS: BACTERIA 4+; WBC TNTC wbc/hpf (0-5)
[2024-12-09 11:13] LABS: EPITHELIAL CELLS TNTC; RBC 0-2 rbc/hpf (0-2)
[2024-12-09 11:17] LABS: ALKALINE PHOSPHATASE 62 U/L (46-116); BUN 11 mg/dl (9-23); CHLORIDE 104 mmol/L (98-107); CHOLESTEROL 167 mg/dL (<200); FREE T4 0.68 ng/dl (0.89-1.76); LDL CHOLESTEROL 86 mg/dL (9-159); SGPT/ALT 20 U/L (5-49); TOTAL PROTEIN 7.8 gm/dL (6.0-8.0); TRIGLYCERIDES 186 mg/dl (<150)
[2024-12-09 11:19] LABS: POTASSIUM 4.1 mmol/L (3.4-5.1)
[2024-12-10 04:06] LABS: DHEA SULFATE 50.5 ug/dL (41.2-243.7)
== END | disposition home or self-care (01) ==
LOC: LAB 10:12
PROVIDERS: ATTEND Internal Medicine
DX: E11.9 Type 2 diabetes mellitus without complications (principal); E03.9 Hypothyroidism, unspecified; E78.5 Hyperlipidemia, unspecified; L68.0 Hirsutism

== ENCOUNTER → 2025-02-13 | Outpatient (CLI) | payer OTHER | END | disposition home or self-care (01) | LOC: MAMMO 02-08 11:30 | PROVIDERS: ATTEND Nurse Practitioner Primary Care | DX: Z12.31 Encounter for screening mammogram for malignant neoplasm of breast (principal); R92.313 Mammographic fatty tissue density, bilateral breasts ==

== ENCOUNTER → 2025-03-03 | Outpatient (CLI) | payer OTHER | END | disposition home or self-care (01) | LOC: ORTHO 03:13 | PROVIDERS: ATTEND Orthopaedic Surgery | DX: M17.11 Unilateral primary osteoarthritis, right knee (principal); M25.761 Osteophyte, right knee ==

== ENCOUNTER → 2025-04-06 | Outpatient (CLI) | payer OTHER ==
[2025-04-06 10:42] LABS: BILIRUBIN Negative (Negative); BLOOD Negative (Negative); CLARITY Cloudy (Clear); COLOR Yellow (Yellow); KETONE Trace (Negative); LEUKO ESTERASE 2+ (Negative); NITRITE Positive (Negative); PH 6.0 (4.5-8.0); SPECIFIC GRAVITY 1.025 (1.001-1.030); UROBILINOGEN 1.0 E.U./dl (0.0-1.0)
[2025-04-06 11:09] LABS: BACTERIA 4+; EPITHELIAL CELLS TNTC; WBC TNTC wbc/hpf (0-5)
[2025-04-06 11:10] LABS: BUN 10 mg/dl (9-23); FREE T4 0.75 ng/dl (0.89-1.76); LDL CHOLESTEROL 131 mg/dL (9-159); SGPT/ALT 32 U/L (5-49)
== END | disposition home or self-care (01) ==
LOC: LAB 09:56
PROVIDERS: ATTEND Internal Medicine
DX: E11.9 Type 2 diabetes mellitus without complications (principal); E78.5 Hyperlipidemia, unspecified; E03.9 Hypothyroidism, unspecified

== ENCOUNTER → 2025-07-21 | Outpatient (CLI) | payer OTHER ==
[2025-07-21 10:50] LABS: BASO # 0.1 10*3/uL (0.0-0.1); BASO % 1.7 % (0.0-1.0); EOS # 0.2 10*3/uL (0.0-0.4); EOS % 2.3 % (1.0-4.0); MEAN CELL VOLUME 101.4 fl (81.0-99.0); MEAN CORPUSCULAR HGB 32.5 pg (27.0-31.0); MEAN PLATELET VOLUME 9.4 fl (9.6-12.3); MONO # 0.5 10*3/uL (0.1-1.0); MONO % 7.4 % (3.0-9.0); NEUT # 3.1 10*3/uL (2.3-7.9); NEUT % 47.8 % (47.0-73.0); NUCLEATED RED BLOOD CELL 0.0 % (0.0-0.0); NUCLEATED RED BLOOD CELL 0.0 10*3/uL (0.0-0.0); PLATELET COUNT AUTOMATED 326 10*3/uL (130-400); RED CELL DISTRI WIDTH 13.2 % (0-14.5)
[2025-07-21 10:51] LABS: BILIRUBIN Negative (Negative); BLOOD Trace-Intact (Negative); CLARITY Clear (Clear); COLOR Yellow (Yellow); KETONE Trace (Negative); LEUKO ESTERASE Trace (Negative); NITRITE Negative (Negative); PH 6.0 (4.5-8.0); SPECIFIC GRAVITY >= 1.030 (1.001-1.030); UROBILINOGEN 1.0 E.U./dl (0.0-1.0)
[2025-07-21 11:17] LABS: BACTERIA 4+
[2025-07-21 11:18] LABS: EPITHELIAL CELLS 0-2; WBC 21-30 wbc/hpf (0-5)
[2025-07-21 11:35] LABS: BUN 14 mg/dl (9-23); LDL CHOLESTEROL 94 mg/dL (9-159); SGPT/ALT 26 U/L (5-49)
[2025-07-21 11:39] LABS: FREE T4 0.98 ng/dl (0.89-1.76); SGPT/ALT 27 U/L (5-49)
== END | disposition home or self-care (01) ==
LOC: LAB 10:22
PROVIDERS: Nurse Practitioner Primary Care; ATTEND Internal Medicine
DX: E11.9 Type 2 diabetes mellitus without complications (principal); E03.9 Hypothyroidism, unspecified; E78.5 Hyperlipidemia, unspecified; D64.9 Anemia, unspecified; E88.9 Metabolic disorder, unspecified

== ENCOUNTER → 2025-08-07 | Outpatient (CLI) | payer OTHER | END | disposition home or self-care (01) | LOC: CT 00:17 | PROVIDERS: ATTEND Nurse Practitioner Primary Care | DX: K76.0 Fatty (change of) liver, not elsewhere classified (principal); K42.9 Umbilical hernia without obstruction or gangrene; R10.9 Unspecified abdominal pain ==